=== PATIENT | female | born 1990 | race Two or more races ===

== ENCOUNTER → 2020-04-12 09:16 | Outpatient (BNVA) | payer MEDICAID, SELFPAY | PROVIDERS: PCP Student in an Organized Health Care Education/Training Program; Referring Provider Student in an Organized Health Care Education/Training Program; Visit Provider Nurse Practitioner | DX: K58.9 Irritable bowel syndrome, unspecified (principal); K21.9 Gastro-esophageal reflux disease without esophagitis; G43.909 Migraine, unspecified, not intractable, without status migrainosus; Z79.899 Other long term (current) drug therapy | CPT/HCPCS: 99214 ==

== ENCOUNTER → 2020-05-03 08:40 | Outpatient (BNVA) | payer MEDICAID, SELFPAY | PROVIDERS: PCP Student in an Organized Health Care Education/Training Program; Visit Provider Nurse Practitioner | DX: Z76.89 Persons encountering health services in other specified circumstances (principal) ==

== ENCOUNTER 2020-05-25 15:03 | Outpatient (REF) | payer MEDICAID, SELFPAY ==
[2020-05-25 17:39] LABS: Thyroid Stimulating Hormone 3.69 uIU/mL (0.32-4.0)
[2020-05-26 11:12] LABS: BV Int Neg Control Negative (Negative); BV Int Pos Control Positive (Positive)
[2020-05-27 12:17] LABS: DHEA Sulfate 317 mcg/dL (18-391)
[2020-05-27 16:13] LABS: Prolactin 14.5 ng/mL
[2020-05-28 11:09] LABS: CT PCR NOT DETECTED (Not Detect.); NG PCR NOT DETECTED (Not Detect.)
[2020-05-30 15:52] LABS: Testosterone, Free 8.6 pg/mL (0.1-6.4); Testosterone, Total 48 ng/dL (2-45)
== END 2020-05-25 15:04 | disposition home or self-care (01) ==
LOC: HO.LAB 15:03
PROVIDERS: Visit Provider Advanced Practice Midwife
DX: N92.6 Irregular menstruation, unspecified (principal); R10.2 Pelvic and perineal pain; L68.0 Hirsutism; L65.9 Nonscarring hair loss, unspecified; Z20.2 Contact with and (suspected) exposure to infections with a predominantly sexual mode of transmission
CPT/HCPCS: 81025; 82627; 83498; 84146; 84402; 84403; 84443; 87480; 87491; 87510; 87591; 87660; 99202

== ENCOUNTER 2020-06-09 11:31 | Outpatient (REF) | payer MEDICAID, SELFPAY ==
--- NOTE | 2020-06-09 11:35 | US_ITS ---
EXAMINATION: ULTRASOUND PELVIS COMPLETE. CLINICAL INFORMATION: Hirsutism. COMPARISON: None TECHNIQUE: Transabdominal and transvaginal ultrasound of the pelvis is performed. FINDINGS: The uterus is anteverted and anteflexed measured 8.0 cm in length, 3.2 cm in AP and 3.9 cm in transverse dimension. An additional thickness is 0.4 cm. The uterus is homogeneous echotexture without any focal lesions. There are multiple small nabothian cysts visualized. Right ovary measures 2.9 x 2.3 x 2.2 cm and volume 7.7 mL. A small follicular cyst seen. Left ovary measures 3.1 x 2.6 x 1.8 cm and volume 7.6 mL. Small follicular cysts are seen in the ovaries. No solid mass seen in the adnexa. There is no free fluid in the cul-de-sac. US/US pelvic complete IMPRESSION: Unremarkable uterus. Small nabothian cyst in cervix. Small ovarian follicular cysts otherwise unremarkable.
--- NOTE | 2020-06-09 11:35 | US_ITS ---
EXAMINATION: ULTRASOUND PELVIS COMPLETE. CLINICAL INFORMATION: Hirsutism. COMPARISON: None TECHNIQUE: Transabdominal and transvaginal ultrasound of the pelvis is performed. FINDINGS: The uterus is anteverted and anteflexed measured 8.0 cm in length, 3.2 cm in AP and 3.9 cm in transverse dimension. An additional thickness is 0.4 cm. The uterus is homogeneous echotexture without any focal lesions. There are multiple small nabothian cysts visualized. Right ovary measures 2.9 x 2.3 x 2.2 cm and volume 7.7 mL. A small follicular cyst seen. Left ovary measures 3.1 x 2.6 x 1.8 cm and volume 7.6 mL. Small follicular cysts are seen in the ovaries. No solid mass seen in the adnexa. There is no free fluid in the cul-de-sac. US/US transvaginal IMPRESSION: Unremarkable uterus. Small nabothian cyst in cervix. Small ovarian follicular cysts otherwise unremarkable.
== END 2020-06-09 11:32 | disposition home or self-care (01) ==
LOC: HO.US 11:31
PROVIDERS: Visit Provider Advanced Practice Midwife
DX: L68.0 Hirsutism (principal); N92.6 Irregular menstruation, unspecified
CPT/HCPCS: 76830; 76856

== ENCOUNTER → 2020-06-14 15:47 | Outpatient (BNVA) | payer MEDICAID, SELFPAY | PROVIDERS: PCP Student in an Organized Health Care Education/Training Program; Visit Provider Nurse Practitioner | DX: Z76.89 Persons encountering health services in other specified circumstances (principal) ==

== ENCOUNTER → 2020-06-23 14:53 | Outpatient (BNVA) | payer MEDICAID, SELFPAY | PROVIDERS: PCP Student in an Organized Health Care Education/Training Program; Visit Provider Advanced Practice Midwife | DX: Z71.2 Person consulting for explanation of examination or test findings (principal); R79.89 Other specified abnormal findings of blood chemistry; L65.9 Nonscarring hair loss, unspecified; E28.2 Polycystic ovarian syndrome | CPT/HCPCS: 99212 ==

== ENCOUNTER 2020-06-23 16:35 | Outpatient (REF) | payer MEDICAID, SELFPAY | END 2020-06-23 16:36 | disposition home or self-care (01) | LOC: HO.LAB 16:35 | PROVIDERS: Visit Provider Internal Medicine | DX: Z20.828 Contact with and (suspected) exposure to other viral communicable diseases (principal) | CPT/HCPCS: 36415; C9803; U0003 ==

== ENCOUNTER 2020-08-03 14:59 | Outpatient (REF) | payer MEDICAID, SELFPAY ==
[2020-08-11 05:52] LABS: HPV 16 RNA NOT DETECTED (NOT DETECTED); HPV mRNA E6/E7 rflx Detected (Not Detected)
== END 2020-08-03 15:00 | disposition home or self-care (01) ==
LOC: HO.LAB 14:59
PROVIDERS: PCP Student in an Organized Health Care Education/Training Program; Visit Provider Advanced Practice Midwife
DX: Z01.419 Encounter for gynecological examination (general) (routine) without abnormal findings (principal); N90.89 Other specified noninflammatory disorders of vulva and perineum; F43.9 Reaction to severe stress, unspecified; Z79.899 Other long term (current) drug therapy
CPT/HCPCS: 36415; 87624; 87625; 88141; 88142

== ENCOUNTER 2020-09-02 09:04 | Outpatient (REF) | payer MEDICAID, SELFPAY | END 2020-09-02 09:05 | disposition home or self-care (01) | LOC: HO.LAB 09:04 | PROVIDERS: Visit Provider Obstetrics & Gynecology | DX: R87.610 Atypical squamous cells of undetermined significance on cytologic smear of cervix (ASC-US) (principal); R87.810 Cervical high risk human papillomavirus (HPV) DNA test positive; E66.9 Obesity, unspecified | CPT/HCPCS: 57454; 81025; 88305 ==

== ENCOUNTER → 2020-09-13 08:43 | Outpatient (BNVA) | payer MEDICAID, SELFPAY | PROVIDERS: PCP Student in an Organized Health Care Education/Training Program; Visit Provider Internal Medicine Endocrinology, Diabetes & Metabolism | DX: E28.2 Polycystic ovarian syndrome (principal); E66.9 Obesity, unspecified | CPT/HCPCS: 99202 ==

== ENCOUNTER 2021-09-15 09:45 | Outpatient (REF) | payer MEDICAID, SELFPAY ==
[2021-09-15 17:54] LABS: CT PCR NOT DETECTED (Not Detect.); NG PCR NOT DETECTED (Not Detect.)
[2021-09-22 07:22] LABS: HPV 16 RNA NOT DETECTED (NOT DETECTED); HPV mRNA E6/E7 rflx Detected (Not Detected)
== END 2021-09-15 09:46 | disposition home or self-care (01) ==
LOC: HO.LAB 09:45
PROVIDERS: PCP Student in an Organized Health Care Education/Training Program; Visit Provider Advanced Practice Midwife
DX: Z01.411 Encounter for gynecological examination (general) (routine) with abnormal findings (principal); Z11.51 Encounter for screening for human papillomavirus (HPV); N92.6 Irregular menstruation, unspecified; R87.619 Unspecified abnormal cytological findings in specimens from cervix uteri; N39.3 Stress incontinence (female) (male); Z20.2 Contact with and (suspected) exposure to infections with a predominantly sexual mode of transmission
CPT/HCPCS: 87491; 87591; 87624; 87625; 88142

== ENCOUNTER 2021-10-25 15:19 | Outpatient (REF) | payer MEDICAID, SELFPAY | END 2021-10-25 15:20 | disposition home or self-care (01) | LOC: HO.LAB 15:19 | PROVIDERS: PCP Student in an Organized Health Care Education/Training Program; Visit Provider Obstetrics & Gynecology | DX: R87.610 Atypical squamous cells of undetermined significance on cytologic smear of cervix (ASC-US) (principal); R87.810 Cervical high risk human papillomavirus (HPV) DNA test positive | CPT/HCPCS: 57454; 81025; 88305 ==

== ENCOUNTER → 2021-11-08 12:11 | Outpatient (BNVA) | payer MEDICAID, SELFPAY | PROVIDERS: Visit Provider Obstetrics & Gynecology | DX: R87.610 Atypical squamous cells of undetermined significance on cytologic smear of cervix (ASC-US) (principal); R87.810 Cervical high risk human papillomavirus (HPV) DNA test positive; N91.2 Amenorrhea, unspecified | CPT/HCPCS: 99212 ==

== ENCOUNTER 2022-01-30 13:31 | Outpatient (REF) | payer MEDICAID, SELFPAY ==
--- NOTE | ~2022-01-30 | US_ITS ---
EXAMINATION: US PELVIC AND TRANSVAGINAL CLINICAL INFORMATION: Amenorrhea. COMPARISON: Ultrasound pelvis 06/09/2020 TECHNIQUE: Ultrasound of the pelvis was performed using both transabdominal and transvaginal transducers along with Doppler. Transvaginal imaging was performed due to inadequate visualization transabdominally. FINDINGS: UTERUS: The uterus is anteverted and measures 7.4 cm in length, 3.3 mL in AP and 4.5 cm in transverse dimensions. The double wall endometrial thickness is 0.6 cm. The uterus is smooth in contour and has normal myometrial echogenicity. No visible fibroid. There are small nabothian cysts seen in the cervix ADNEXA: Both ovaries are visualized. There is normal color flow to the adnexa. There is no ovarian torsion. There is no pelvic ascites or fluid collection. Right ovary measures 3.1 x 2.7 x 2.2 cm and volume 9.9 mL. There are small follicular cysts seen. Left ovary measures 2.7 x 1.8 x 2.0 cm and volume 5.1 mL. Small follicular cysts are seen. US/US pelvic and transvaginal IMPRESSION: Bilateral small ovarian follicular cysts. Similar findings were seen on previous exam 06/09/2020 The uterus is unremarkable. Small nabothian cysts in cervix. These were visualized on previous exam as well
== END 2022-01-30 13:32 | disposition home or self-care (01) ==
LOC: HO.US 13:31
PROVIDERS: Visit Provider Obstetrics & Gynecology
DX: N92.1 Excessive and frequent menstruation with irregular cycle (principal)
CPT/HCPCS: 76830; 76856

== ENCOUNTER 2022-11-28 14:02 | Outpatient (REF) | payer MEDICAID, SELFPAY | END 2022-11-28 14:03 | disposition home or self-care (01) | LOC: HO.LNP 14:02 | PROVIDERS: PCP Student in an Organized Health Care Education/Training Program; Visit Provider Nurse Practitioner Family | DX: R31.0 Gross hematuria (principal); N20.0 Calculus of kidney; R39.15 Urgency of urination | CPT/HCPCS: 88112; 99202 ==

== ENCOUNTER 2022-11-28 16:48 | Outpatient (REF) | payer MEDICAID, SELFPAY ==
[2022-11-29 08:19] LABS: Urine Cytology See Pathology rpt
== END 2022-11-28 16:49 | disposition home or self-care (01) ==
LOC: HO.10HDLNP 16:48
PROVIDERS: Visit Provider Nurse Practitioner Family
DX: R31.0 Gross hematuria (principal); R39.15 Urgency of urination
CPT/HCPCS: 88112

== ENCOUNTER 2023-01-02 10:22 | Outpatient (REF) | payer MEDICAID, SELFPAY ==
--- NOTE | ~2023-01-02 | CT_ITS ---
EXAMINATION: CT ABDOMEN AND PELVIS WITHOUT AND WITH CONTRAST CLINICAL INFORMATION: Gross hematuria. COMPARISON: None available. TECHNIQUE: Noncontrast CT of the abdomen and pelvis is performed followed by split bolus contrast-enhanced images using 85 mL Omnipaque 350 contrast.?Postcontrast imaging is performed during the combined nephrogram and excretion phase. Sagittal and coronal reformatted images were obtained on the technologist's workstation for both the precontrast and postcontrast phases. This CT examination was performed using dose optimization techniques as appropriate, variously including the following: *Automated exposure control *Adjustment of mA and/or kV according to patient size (this includes techniques or standardized protocols for targeted exams where dose is matched to indication/reason for exam; i.e. extremities or head) *Use of iterative reconstruction technique DLP: 1125 mGy-cm FINDINGS: LUNG BASES: The visualized lung bases are unremarkable. LIVER, GALLBLADDER, AND BILIARY TREE: The liver is normal in size, shape, and diffusely attenuated. There are punctate calcifications in the left hepatic lobe of indeterminate etiology. Otherwise rest of the liver is unremarkable. No intrahepatic ductal dilatation seen. The gallbladder is unremarkable with no evidence of radiopaque gallstones, gallbladder wall thickening, or obvious pericholecystic inflammatory changes. PANCREAS: Unremarkable. SPLEEN: Unremarkable. ADRENAL GLANDS: Unremarkable. KIDNEYS AND URETERS: The kidneys are normal in size, shape, and attenuation. There is a 2 mm calcification/calculi in the upper midpole right kidney without caliectasis. There is a 9 mm hypodensity midpole right kidney measuring high attenuation not a simple cyst. A similar hypodense 6 mm lesion is seen in the upper pole right kidney measuring 46 Hounsfield units. BLADDER: The bladder is partially opacified from excreted urinary contrast. No radiopaque calculi or bladder wall thickness seen. GASTROINTESTINAL TRACT: There is scattered stool and gas seen in the colon without distention. The small bowel loops are normal caliber. Appendix is not visualized. No free air or free fluid seen. The stomach is nondistended. ABDOMINAL WALL: Normal. LYMPH NODES: Unremarkable. PELVIC VISCERA: The uterus is anteverted and appears unremarkable. No free air or free fluid seen. There is no evidence of hernia. OSSEOUS STRUCTURES: No aggressive lytic or sclerotic process seen. CT/CT urogram IMPRESSION: 1. Nonobstructive 2 mm calcification/calculi in the upper midpole right kidney. No caliectasis or hydronephrosis seen. 2. There are 2 hypodense high-attenuation lesions in the right kidney measuring 40 Hounsfield units plus not simple cyst. Correlate with renal ultrasound. 3. Mild constipation. 4. Punctate calcifications left hepatic lobe of indeterminate etiology.
[2023-01-02] MEDS: iohexoL 350 MG/ML 100 ML INFUS..BTL IV (11:15)
== END 2023-01-02 10:23 | disposition home or self-care (01) ==
LOC: HO.CT 10:22
PROVIDERS: PCP Student in an Organized Health Care Education/Training Program; Visit Provider Nurse Practitioner Family
DX: R31.0 Gross hematuria (principal)
CPT/HCPCS: 74178; Q9967

== ENCOUNTER 2023-03-29 11:08 | Outpatient (AMB) | payer MEDICAID, SELFPAY ==
--- NOTE | 2023-01-10 07:03 | A.OFFVIS_ITS ---
Intake Intake Visit Reasons: cysto/CT Allergies No Known Allergies Allergy (Verified 11/28/22 22:03) HPI HPI Comments History of Present Illness Details Myra is a 32-year-old female who presents today to the office 01/10/2023-- Evaluation today-- Plan: [facility] Medical History Obesity Obesity (BMI 30-39.9) Surgical History Hx of section Family History Father No problems noted. Mother Asthma Arthritis Fibromyalgia Brother Cerebral palsy Social History Household Members: Children Housing: Apartment Alcohol intake: current Alcohol intake frequency: does not drink Substance Use Type: Marijuana Gender identity: Female Female Reproductive History Menstrual Age of Menarche: 11 Assessment & Plan Assessment & Plan Patient Instructions: The patient had an opportunity to ask questions regarding treatment plan. All questions were answered. Imaging, Laboratory studies and physical exam results were discussed and reviewed in detail. No major barriers to understanding were identified. The patient expressed understanding and agreement with the above treatment plan.? ? ? The patient is aware they should contact our office by phone for worsening of their current condition or the appearance of new symptoms. Compliance is encouraged with any medications and followup testing that is ordered.? ? ? It is a privilege to be allowed the opportunity to participate in the urologic care of your patient. If you have any questions or concerns regarding treatment for the above conditions please do not hesitate to contact me. The office telephone contact is [phone].? ? ? This note is constructed in part using voice recognition software. While every effort has been made to ensure accuracy roving department end finder errors may have been included.? ? ? Yours sincerely,? ? ? Sean Sanchez MD? ? Coding Diagnoses
--- NOTE | 2023-03-29 11:09 | MHC.OFFVIS ---
Intake Intake Visit Reasons: follow up/CT (pt refuse cysto) Intake Note: Patient presents today for a follow-up on CT Scan result completed on 01/02/2023: Meds- None Allergies to Antibiotic- No Known Allergies Blood Thinner- None Electrical Engineering Professor Required: No Accompanied by: Self / Same As Patient Allergies No Known Allergies Allergy (Verified 03/29/23 11:10) HPI HPI Comments History of Present Illness Details Myra is a 32-year-old female who is being evaluated for hematuria. She states that a few months ago about February she had blood in the urine on a few occasions that day without pain. She states that she had some mild burning which has resolved. She stated that she was not treated with antibiotics. She denies nicotine use. She was initially evaluated by nurse practitioner Amber Khan, I have reviewed results with the patient. CT urogram was done which noted a 2 mm stone in the right kidney as well as 2 subcentimeter cystic lesions with recommendations for follow-up. Urine cytology in her chart was negative for malignant cells. The patient had a renal ultrasound done at [facility] in August which I have reviewed, there no parenchymal lesions noted. Although she has kidney stones and this may be be the reason for the gross hematuria she had no pain associated with the incidence I were multiple so I have discussed following up with cystoscopy. The patient has anxiety which she is on medication for and refuses to have the cystoscopy in the office. Plan: Consent obtained for cystoscopy possible bladder biopsy as an outpatient. Renal ultrasound in 6 months [facility] Medical History Obesity (BMI 30-39.9) Obesity Surgical History Hx of section Family History Father No problems noted. Mother Asthma Arthritis Fibromyalgia Brother Cerebral palsy Social History Household Members: Children Housing: Apartment Alcohol intake: current Alcohol intake frequency: does not drink Substance Use Type: Marijuana Gender identity: Female Female Reproductive History Menstrual Age of Menarche: 11 Review of Systems Const All systems reviewed & are unremarkable except as noted in HPI and below Reports no additional complaints Eyes Reports no additional complaints ENT Reports no additional complaints Card Denies dyspnea Resp Denies cough and Denies dyspnea GI Reports no additional complaints Reports no additional complaints Musc Reports no additional complaints Skin/Breast Denies rash and Denies unusual bruising Neuro Reports no additional complaints Psych Reports no additional complaints Endo Reports no additional complaints Anthony/Lymph Reports no additional complaints Aller/Immun Reports no additional complaints Results AMB Urinalysis, Automated UA Leukoctes 0 Sol/uL Last Edit by Cyril Lockhart Kervin on 03/29/23 11:18 UA Nitrite Negative Last Edit by Cyril Lockhart [facility] on 03/29/23 11:18 UA Urobilinogen 0 mg/dL Last Edit by Cyril Lockhart [facility] on 03/29/23 11:18 UA Protein 0.2 mg/dL Last Edit by Cyril Lockhart [facility] on 03/29/23 11:18 UA pH 5.5 Last Edit by Cyril Lockhart [facility] on 03/29/23 11:18 UA Blood 25 Travis/uL Last Edit by Cyril Lockhart [facility] on 03/29/23 11:18 UA Specific [place] 1.020 Last Edit by Cyril Lockhart [facility] on 03/29/23 11:18 UA Ketone Negative Last Edit by Cyril Lockhart [facility] on 03/29/23 11:18 UA Bilirubin 0 mg/dL Last Edit by Cyril Lockhart [facility] on 03/29/23 11:18 UA Glucose 0 mg/dL Last Edit by Cyril Lockhart [facility] on 03/29/23 11:18 Results Reviewed Results Reviewed: Laboratory Last Values Urine pH (Auto) 5.5 03/29/23 11:10 Specific [place] (Auto) 1.020 03/29/23 11:10 Urine Protein (Auto) 0.2 mg/dL 03/29/23 11:10 Glucose (UA)(Auto) 0 mg/dL 03/29/23 11:10 Urine Ketones (Auto) Negative 03/29/23 11:10 Urine Blood (Auto) 25 Travis/uL 03/29/23 11:10 Urine Nitrite (Auto) Negative 03/29/23 11:10 Urine Bilirubin (Auto) 0 mg/dL 03/29/23 11:10 Urine Urobilinogen (Auto) 0 mg/dL 03/29/23 11:10 Leukocyte Esterase (Auto) 0 Sol/uL 03/29/23 11:10 Date of Service: 01/02/23 EXAMINATION: CT ABDOMEN AND PELVIS WITHOUT AND WITH CONTRAST CLINICAL INFORMATION: Gross hematuria. COMPARISON: None available. TECHNIQUE: Noncontrast CT of the abdomen and pelvis is performed followed by split bolus contrast-enhanced images using 85 mL Omnipaque 350 contrast.?Postcontrast imaging is performed during the combined nephrogram and excretion phase. Sagittal and coronal reformatted images were obtained on the technologist's workstation for both the precontrast and postcontrast phases. This CT examination was performed using dose optimization techniques as appropriate, variously including the following: *Automated exposure control *Adjustment of mA and/or kV according to patient size (this includes techniques or standardized protocols for targeted exams where dose is matched to indication/reason for exam; i.e. extremities or head) *Use of iterative reconstruction technique DLP: 1125 mGy-cm FINDINGS: LUNG BASES: The visualized lung bases are unremarkable. LIVER, GALLBLADDER, AND BILIARY TREE: The liver is normal in size, shape, and diffusely attenuated. There are punctate calcifications in the left hepatic lobe of indeterminate etiology. Otherwise rest of the liver is unremarkable. No intrahepatic ductal dilatation seen. The gallbladder is unremarkable with no evidence of radiopaque gallstones, gallbladder wall thickening, or obvious pericholecystic inflammatory changes. PANCREAS: Unremarkable. SPLEEN: Unremarkable. ADRENAL GLANDS: Unremarkable. KIDNEYS AND URETERS: The kidneys are normal in size, shape, and attenuation. There is a 2 mm calcification/calculi in the upper midpole right kidney without caliectasis. There is a 9 mm hypodensity midpole right kidney measuring high attenuation not a simple cyst. A similar hypodense 6 mm lesion is seen in the upper pole right kidney measuring 46 Hounsfield units. BLADDER: The bladder is partially opacified from excreted urinary contrast. No radiopaque calculi or bladder wall thickness seen. GASTROINTESTINAL TRACT: There is scattered stool and gas seen in the colon without distention. The small bowel loops are normal caliber. Appendix is not visualized. No free air or free fluid seen. The stomach is nondistended. ABDOMINAL WALL: Normal. LYMPH NODES: Unremarkable. PELVIC VISCERA: The uterus is anteverted and appears unremarkable. No free air or free fluid seen. There is no evidence of hernia. OSSEOUS STRUCTURES: No aggressive lytic or sclerotic process seen. IMPRESSION: 1. Nonobstructive 2 mm calcification/calculi in the upper midpole right kidney. No caliectasis or hydronephrosis seen. 2. There are 2 hypodense high-attenuation lesions in the right kidney measuring 40 Hounsfield units plus not simple cyst. Correlate with renal ultrasound. 3. Mild constipation. 4. Punctate calcifications left hepatic lobe of indeterminate etiology. Assessment & Plan Assessment & Plan (1) Gross hematuria: Code(s): R31.0 - Gross hematuria (2) Nephrolithiasis: Code(s): N20.0 - Calculus of kidney (3) Abnormal finding on CT scan: Comment: 2 Subcentimeter hypodense high-attenuation lesions in the right kidney Code(s): R93.89 - Abnormal findings on diagnostic imaging of other specified body structures Plan Plan: Consent obtained for cystoscopy possible bladder biopsy as an outpatient. Renal ultrasound in 6 months Orders: Orders AMB Urinalysis Automated Today Z13.9 - Encounter for screening, unspecified Patient Instructions: The patient had an opportunity to ask questions regarding treatment plan. All questions were answered. Imaging, Laboratory studies and physical exam results were discussed and reviewed in detail. No major barriers to understanding were identified. The patient expressed understanding and agreement with the above treatment plan. The patient is aware they should contact our office by phone for worsening of their current condition or the appearance of new symptoms. Compliance is encouraged with any medications and followup testing that is ordered. It is a privilege to be allowed the opportunity to participate in the urologic care of your patient. If you have any questions or concerns regarding treatment for the above conditions please do not hesitate to contact me. The office telephone contact is [phone]. This note is constructed in part using voice recognition software. While every effort has been made to ensure accuracy new client banking services clerk errors may have been included. Yours sincerely, Sean Sanchez MD Coding Level of Care Code Est Pt Level 4 (43526) Diagnoses Gross hematuria R31.0 Nephrolithiasis N20.[address] scan R93.89
== END 2023-03-29 11:50 | disposition home or self-care (01) ==
PROVIDERS: PCP Student in an Organized Health Care Education/Training Program; Visit Provider Urology
DX: R31.0 Gross hematuria (principal); N20.0 Calculus of kidney; R93.89 Abnormal findings on diagnostic imaging of other specified body structures; Z13.9 Encounter for screening, unspecified
CPT/HCPCS: 99214

== ENCOUNTER → 2023-03-29 11:08 | Outpatient (BNVA) | payer MEDICAID, SELFPAY | PROVIDERS: PCP Student in an Organized Health Care Education/Training Program; Visit Provider Urology | DX: R31.0 Gross hematuria (principal); R93.89 Abnormal findings on diagnostic imaging of other specified body structures; N20.0 Calculus of kidney | CPT/HCPCS: 81003; 99212 ==

== ENCOUNTER 2023-04-23 06:20 | Day surgery (SDC) | payer MEDICAID, SELFPAY ==
[2023-04-19 09:31] VITALS: BMI 33.8
--- NOTE | 2023-04-22 09:07 | HO.ANESPROP2 ---
HPI - Anesthesia Eval Consult details Narrative: 32yo F for Cystoscopy,with Poss Bladder Biopsy PMFSH Active Problems Active Problems: All Active Problems (Updated 04/19/23 @ 09:27 by Tiffany Roy RN) Abnormal finding on CT scan (Acute) Nephrolithiasis (Acute) Gross hematuria (Acute) Amenorrhea (Acute) ASCUS with positive high risk HPV cervical (Acute) PCOS (polycystic ovarian syndrome) (Acute) Loss of hair (Acute) Elevated testosterone level in female (Acute) Encounter to discuss test results (Acute) Irregular menses (Acute) Hirsutism (Acute) Pelvic pain in female (Acute) IBS (irritable bowel syndrome) (Acute) Migraines (Acute) Lower abdominal pain (Acute) GERD (gastroesophageal reflux disease) (Acute) Nausea and vomiting (Acute) Obesity (BMI 30-39.9) (Acute) Obesity (Acute) Past Medical History Medical History (Updated 04/19/23 @ 09:27 by Tiffany Roy RN) Migraine GERD (gastroesophageal reflux disease) Amenorrhea PCOS (polycystic ovarian syndrome) Nephrolithiasis Obesity (BMI 30-39.9) Obesity Family History Family History Father No problems noted. Mother Asthma Arthritis Fibromyalgia Brother Cerebral palsy Surgical History Surgical History Hx of section Social History Social History Household Members: Children Housing: Apartment Alcohol intake: current Alcohol intake frequency: does not drink Substance Use Type: Marijuana Gender identity: Female Meds Allergies Allergy/AdvReac Type Severity Reaction Status Date / Time No Known Allergies Allergy Verified 03/29/23 11:10 Home Medications Medication Instructions Recorded Confirmed Last Taken Type aripiprazole 10 mg tablet 10 mg PO QAM 03/29/23 04/19/23 Unknown History buspirone 5 mg tablet 5 mg PO BID 03/29/23 04/19/23 Unknown History dextroamphetamine-amphetamine ER 2 cap PO QAM 03/29/23 04/19/23 Unknown History 20 mg 24hr capsule,extend release (Adderall XR) hydroxyzine HCl 25 mg tablet 25 mg PO BID PRN anxiety 03/29/23 04/19/23 Unknown History Exam Exam Date and Time: April 22, 2023 0907 Height,Weight and Vital Signs: Height 5 ft 3 in Weight 86.636 kg Assessment and Plan Assessment Anesthesia Assessment: Chart Reviewed
[2023-04-23 06:39] VITALS: BMI 32.6
[2023-04-23 06:39] LABS: UPreg QC Valid YES; Urine Pregnancy NEGATIVE (NEGATIVE)
[2023-04-23 06:40] VITALS: BP 118/63; PULSE 95; RESP 16; TEMP 36.5; O2SAT 97
[2023-04-23] MEDS: Lactated Ringers 1,000 ML 100 ML IVCONT (07:13)
--- NOTE | 2023-04-23 07:41 | MHC.SHP ---
Pre-Procedural Eval Section A Date of Service: 04/23/23 The patient is an INPATIENT: No The History & Physical has been completed within 30 days and I have reviewed it.: Yes Section B Chief Complaint: Gross hematuria Allergies: Allergies Allergy/AdvReac Type Severity Reaction Status Date / Time No Known Allergies Allergy Verified 04/23/23 06:48 Plan Diagnosis/Plan: Unchanged I have reviewed the history and physical and performed a pertinent physical examination on my patient. No changes have occurred unless specified. Cystoscopy possible bladder biopsy. Discussed risks to include but not limited to, blood in the urine, burning with urination, urgency. Time Spent With Patient Time: Total time managing care of this patient today ____ minutes.
--- NOTE | 2023-04-23 08:02 | P.CONAN_ITS ---
[facility] Active Problems Active Problems: All Active Problems (Updated 04/19/23 @ 09:27 by Tiffany Roy RN) Abnormal finding on CT scan (Acute) Nephrolithiasis (Acute) Gross hematuria (Acute) Amenorrhea (Acute) ASCUS with positive high risk HPV cervical (Acute) PCOS (polycystic ovarian syndrome) (Acute) Loss of hair (Acute) Elevated testosterone level in female (Acute) Encounter to discuss test results (Acute) Irregular menses (Acute) Hirsutism (Acute) Pelvic pain in female (Acute) IBS (irritable bowel syndrome) (Acute) Migraines (Acute) Lower abdominal pain (Acute) GERD (gastroesophageal reflux disease) (Acute) Nausea and vomiting (Acute) Obesity (BMI 30-39.9) (Acute) Obesity (Acute) Past Medical History Medical History Migraine GERD (gastroesophageal reflux disease) Amenorrhea PCOS (polycystic ovarian syndrome) Nephrolithiasis Obesity (BMI 30-39.9) Obesity Functional capacity: independent ambulation Patient : No Family History Family History Father No problems noted. Mother Asthma Arthritis Fibromyalgia Brother Cerebral palsy Family history of problems with anesthesia: No Surgical History Surgical History Hx of section History of Problems with Anesthesia: No Social History Social History Household Members: Children Housing: Apartment Alcohol intake: current Alcohol intake frequency: does not drink Patient Tobacco Use Status: Former Tobacco user Use of substances other than those prescribed or required for medical reasons: Yes Substance Use Type: Marijuana Substance Use Frequency: Occasionally Are you DNR?: No Advance Directives: No Advance Directives Information Provided: Yes Gender identity: Female Meds Allergies Allergy/AdvReac Type Severity Reaction Status Date / Time No Known Allergies Allergy Verified 04/23/23 06:48 Active Medications: Current Medications Lactated Ringer's (Lr) 1,000 mls @ 100 mls/hr IVCONT .Q10H ARTHUR Last Admin: 04/23/23 07:13 Dose: 100 mls/hr Home Medications Medication Instructions Recorded Confirmed Last Taken Type aripiprazole 10 mg tablet 10 mg PO QAM 03/29/23 04/23/23 Unknown History buspirone 5 mg tablet 5 mg PO BID 03/29/23 04/23/23 Unknown History dextroamphetamine-amphetamine ER 2 cap PO QAM 03/29/23 04/23/23 Unknown History 20 mg 24hr capsule,extend release (Adderall XR) hydroxyzine HCl 25 mg tablet 25 mg PO BID PRN anxiety 03/29/23 04/23/23 Unknown History Exam Exam Date and Time: April 23, 2023 0802 Height,Weight and Vital Signs: Height 5 ft 3 in Weight 83.461 kg Last Vital Signs Temp 97.7 F 04/23/23 06:40 Pulse 95 04/23/23 06:40 Resp 16 04/23/23 06:40 BP 118/63 04/23/23 06:40 Pulse Ox 97 04/23/23 06:40 O2 Del Method Room Air 04/23/23 06:40 Pertinent Lab Results Pertinent Lab Results: Laboratory Tests 04/23/23 06:30 Urine Test NEGATIVE Airway Mallampati Class: III TM Dist: >3cm Neck ROM: Full Heart: RRR Lungs: CTA Assessment and Plan Assessment Anesthesia Assessment: Anesthesia Plan Discussed Final Anesthetic Review Family History of Problems with Anesthesia: No History of Problems with Anesthesia: No ASA Class: II Final Preanesthetic Review: Meds/Allgs Chart Reviewed, Consent Obtained/Reviewed and Anes Risks/Benef Reviewed Patient Risk: Low Procedure Risk: Low Anesthetic Plan Anesthetic Plan: GA Disposition: Standard PACU
[2023-04-23 08:26] VITALS: BP 114/64; PULSE 69; RESP 16; TEMP 36.4; O2SAT 94
[2023-04-23 08:31] VITALS: BP 99/67; PULSE 74; RESP 16; O2SAT 94
--- NOTE | 2023-04-23 08:31 | W.PM.OPN ---
Operative Note Operative Note Date of Service: 04/23/23 Narrative: PREOP DIAGNOSIS: Gross hematuria POSTOP DIAGNOSIS: Gross hematuria PROCEDURE: CYSTOSCOPY BLADDER BIOPSY SURGEON: Sean Sanchez MD ANESTHESIA: GENERAL FINDING: BLADDER MUCOSA MILD INFLAMMATORY CHANGES, BLADDER LESION POSTERIOR WALL LESS THAN 1 CM. Details of procedure: The patient was brought into the operating room placed on the OR table in supine position. 2 g of Ancef IV. General anesthesia was administered. The patient was repositioned into lithotomy position, prepped and draped in the usual sterile fashion. Time-out was done per protocol. 2% lidocaine jelly was passed transurethrally. A 22 fr cystoscope was placed transurethrally into the bladder. The right and left ureteral orifices were visualized in the normal position. The entire bladder was visualized. Mild inflammatory changes noted. A few multifocal irregular lesions suggestive of bullous changes noted, a biopsy was taken of 1 of these findings at the posterior wall. A 2nd random biopsy was done at the posterior wall of the bladder. The Bugbee electrode was used to obtain adequate hemostasis. The cystoscope was removed. 2% lidocaine urojet was passed transurethrally into the bladder. The patient was brought out of anesthesia and taken to recovery in stable condition. Complications: None Drains: None
[2023-04-23 08:36] VITALS: BP 115/72; PULSE 73; RESP 16; O2SAT 97
[2023-04-23 08:41] VITALS: BP 122/76; RESP 16; O2SAT 97
[2023-04-23] MEDS: Phenazopyridine HCL 200 MG TABLET PO (08:52)
[2023-04-23 08:56] VITALS: BP 122/73; PULSE 77; RESP 16; TEMP 36.4; O2SAT 98
--- NOTE | 2023-04-23 09:36 | HO.POSTANES ---
Post Anesthesia Evaluation Post Anesthesia Evaluation Date of Service: 04/23/23 Vital Signs: Vital Signs Temp Pulse Resp BP Pulse Ox O2 Del Method 04/23/23 08:56 97.6 F 77 16 122/73 98 Room Air 04/23/23 08:41 16 122/76 97 Room Air 04/23/23 08:36 73 16 115/72 97 Room Air 04/23/23 08:31 74 16 99/67 94 Room Air 04/23/23 08:26 97.6 F 69 16 114/64 94 Room Air 04/23/23 06:40 97.7 F 95 16 118/63 97 Room Air Anesthesia: General LMA Mental Status: Awake Pain Control: Satisfactory Nausea/Vomiting: None Hydration: Adequate Anesthesia-Related Issues: No Anes. Related Issues
== END 2023-04-23 09:17 | disposition home or self-care (01) ==
PROVIDERS: Nurse Practitioner; PCP Student in an Organized Health Care Education/Training Program; Visit Provider Urology
PROC: (CPT 52204; principal; 2023-04-23 07:30)
DX: R31.0 Gross hematuria (principal); N32.9 Bladder disorder, unspecified; R93.89 Abnormal findings on diagnostic imaging of other specified body structures; N20.0 Calculus of kidney; E66.9 Obesity, unspecified; Z79.899 Other long term (current) drug therapy; F12.90 Cannabis use, unspecified, uncomplicated; Z87.891 Personal history of nicotine dependence
CPT/HCPCS: 52204; 81025; 88305; J0690; J1100; J2250; J2405; J3010

== ENCOUNTER → 2023-04-23 06:20 | Outpatient (BNV) | payer MEDICAID, SELFPAY | PROVIDERS: PCP Student in an Organized Health Care Education/Training Program; Visit Provider Urology | DX: R31.0 Gross hematuria (principal) | CPT/HCPCS: 52204 ==

== ENCOUNTER 2023-05-02 12:06 | Outpatient (REF) | payer MEDICAID, SELFPAY | END 2023-05-02 12:07 | disposition home or self-care (01) | LOC: HO.CHCLNP 12:06 | PROVIDERS: Visit Provider Internal Medicine | DX: N30.90 Cystitis, unspecified without hematuria (principal) | CPT/HCPCS: 87086; 87088; 87186 ==

== ENCOUNTER 2023-05-17 13:05 | Outpatient (REF) | payer MEDICAID, SELFPAY ==
[2023-05-18 13:58] LABS: C. trachomatis RNA TMA NOT DETECTED (NOT DETECTED); N. gonorrhoeae RNA TMA NOT DETECTED (NOT DETECTED)
== END 2023-05-17 13:06 | disposition home or self-care (01) ==
LOC: HO.CHCLNP 13:05
PROVIDERS: Visit Provider Pediatrics
DX: N30.90 Cystitis, unspecified without hematuria (principal)
CPT/HCPCS: 36415; 81513; 87491; 87591

== ENCOUNTER 2023-06-28 11:53 | Outpatient (REF) | payer MEDICAID, SELFPAY ==
[2023-06-28 15:04] LABS: Appearance Urine Cloudy; Color Urine Yellow; Glucose Urine UA Negative (Negative); Leukocyte Esterase Urine Moderate (2+) (Negative); Nitrite Urine Positive (Negative); PH 5.5 (5.0-9.0); UMIC TRIGGER UACC YES; Urine Blood Small (1+) (Negative); Urine Ketones Negative (Negative); Urine Protein Negative (Neg-Trace)
[2023-06-28 15:33] LABS: Bacteria Urine 4+ (None Seen); Hyaline Casts Urine 0-2 /LPF (0-2); UACC Culture Trigger YES; WBC Urine >50 /HPF (0-5)
== END 2023-06-28 11:54 | disposition home or self-care (01) ==
LOC: HO.CHCLNP 11:53
PROVIDERS: Visit Provider Internal Medicine
DX: N30.01 Acute cystitis with hematuria (principal)
CPT/HCPCS: 81001; 81003; 87086; 87088; 87186

== ENCOUNTER 2023-07-11 18:05 | Outpatient (REF) | payer MEDICAID, SELFPAY ==
[2023-07-12 07:42] LABS: CT PCR NOT DETECTED (Not Detect.); NG PCR NOT DETECTED (Not Detect.)
[2023-07-12 09:27] LABS: BV Int Neg Control Negative (Negative); BV Int Pos Control Positive (Positive)
== END 2023-07-11 18:06 | disposition home or self-care (01) ==
LOC: HO.HHCLNP 18:05
PROVIDERS: Visit Provider Emergency Medicine
DX: R30.0 Dysuria (principal)
CPT/HCPCS: 0353U; 87086; 87088; 87186; 87480; 87510; 87660

== ENCOUNTER 2023-09-23 11:10 | Outpatient (REF) | payer MEDICAID, SELFPAY ==
[2023-09-23 15:47] LABS: Influenza A PCR NEGATIVE (Negative); Influenza B PCR NEGATIVE (Negative); Resp Syncy Virus RNA Qual PCR NEGATIVE (Negative); SARS COV2 PCR INHOUSE NEGATIVE (Negative)
== END 2023-09-23 11:11 | disposition home or self-care (01) ==
LOC: HO.CHCLNP 11:10
PROVIDERS: Visit Provider Family Medicine
DX: J06.9 Acute upper respiratory infection, unspecified (principal)
CPT/HCPCS: 0241U

== ENCOUNTER 2023-12-04 10:23 | Outpatient (AMB) | payer MEDICAID, SELFPAY ==
--- NOTE | 2023-12-04 10:24 | MHC.OFFVIS ---
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 Doing well with no concerns. Trying to conceive, she has a 11-year-old. She tries to eat healthy and stays active with exercise-walks and lifts at work, attempting to lose. Cycles are irregular q 2months, hx. PCOS. Currently is sexually active. She denies vaginal itching and irritation, concerned about white discharge. STI screening offered; she accepts cultures, not bloodwork. Denies family history of breast, ovarian or colon cancer. Last pap smear 2021 colposcopy, negative. History of ascus with HPV positive. [facility] Medical History Migraine GERD (gastroesophageal reflux disease) Amenorrhea PCOS (polycystic ovarian syndrome) Nephrolithiasis Obesity (BMI 30-39.9) Obesity Surgical History Hx of section Family History Father No problems noted. Mother Asthma Arthritis Fibromyalgia Brother Cerebral palsy Social History Household Members: Children Housing: Apartment Alcohol intake: current Alcohol intake frequency: does not drink Comment: N/A Patient Tobacco Use Status: Former Tobacco user Substance Use Type: Marijuana Gender identity: Female Female Reproductive History Menstrual Age of Menarche: 11 Date of last menstrual period: 11/08/23 Review of Systems Const All systems reviewed & are unremarkable except as noted in HPI and below Reports as per HPI Eyes Reports no additional complaints ENT Reports no additional complaints Card Reports no additional complaints Resp Reports no additional complaints GI Reports as per HPI and Reports no additional complaints Reports as per HPI Musc Reports no additional complaints Skin/Breast Reports as per HPI Neuro Reports no additional complaints Psych Reports no additional complaints Endo Reports no additional complaints Anthony/Lymph Reports no additional complaints Aller/Immun Reports no additional complaints Physical Exam Vital Signs: Last Vital Signs BP 106/64 12/04/23 10:27 BMI result Body Mass Index 36.2 Const General: cooperative, healthy appearing, no acute distress, well developed and alert Orientation/consciousness: patient oriented x3 HEENT Head: Yes normal to inspection Eyes General: appearance normal, both eyes and all related structures Neck Neck: Yes normal visual inspection Thyroid: Thyroid normal Chest Chest palpation & inspection: normal inspection of the chest and other (no puckering, dimpling, peau de orange, retraction, discharge, masses) Breast/axilla inspection: normal inspection of the breasts Breast/axilla palpation: normal palpation of the breasts Resp Effort & Inspection: normal respiratory effort GI Inspection: Yes normal to inspection Palpation (GI): Soft to palpation Rectal Exam - Female: deferred General: Yes bladder normal to palpation External Female Exam: normal external appearance and normal appearance of the urethra Speculum Exam - Vagina: normal appearance of the vagina, normal palpation and normal vaginal discharge Speculum Exam - Cervix: normal appearance of the cervix and normal palpation Bimanual exam- vagina & uterus: normal bimanual exam, normal palpation, uterine size normal, bladder normal to palpation, normal palpation and non-tender Bimanual Exam- Adnexa, other: no masses Skin General skin exam: no rashes or lesions noted Rashes: no rashes Neuro General: patient oriented x3 Cognition (Neuro): normal cognition Extrem General: Yes normal to inspection Psych Attitude: cooperative Thought process: Normal thought process present Assessment & Plan Assessment & Plan (1) Encounter for well woman exam with routine gynecological exam: Code(s): Z01.419 - Encounter for gynecological examination (general) (routine) without abnormal findings Category: Medical Plan Discussed: Current recommendations for pap smears per ASCCP guidelines. Pap obtained today await for results for plan of care. GC chlamydia and BV panel also pending. Breast awareness and periodic breast exams. Maintain a healthy lifestyle including a well balanced diet and routine exercise. Continue with weight loss and check in with primary care about weight loss goals and management plans. Start vitamins for the benefit folic acid. Check with insurance plan to see if coverage for infertility is available, if so who is on her plan and can message the portal and request a referral if needed. Advised if cycles are spacing out longer than 2 months to call for a follow up to have some Aygestin sent in if needed. Patient verbalizes understanding and agrees to the plan of care. She was given opportunity to ask questions and all questions were answered to the best of my ability. RTO in one year for annual manager applied examination. This note is constructed using voice recognition software. While every effort has been made to ensure accuracy, big data engineer errors may have been included. Orders: Orders AMB HCG Urine Test Today Z32.02 - Encounter for test, result negative Medications: New PNV,calcium 18-[id number]-[id number] acid 27 mg iron- 1 mg ( Vitamins Plus Low Iron) 1 tab PO DAILY 90 tabs 4RF Coding Level of Care Code Est Pt Prev Care 18-39y(30617) Diagnoses Encounter for well woman exam with routine gynecological exam Z01.419
--- NOTE | 2023-12-04 10:24 | MHC.OFFVIS ---
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 Mother Asthma Arthritis Fibromyalgia Brother Cerebral palsy Social History Household Members: Children Housing: Apartment Alcohol intake: current Alcohol intake frequency: does not drink Comment: N/A Patient Tobacco Use Status: Former Tobacco user Substance Use Type: Marijuana Gender identity: Female Female Reproductive History Menstrual Age of Menarche: 11 Coding
[2023-12-04 10:27] VITALS: BP 106/64; BMI 36.2
== END 2023-12-04 11:02 | disposition home or self-care (01) ==
PROVIDERS: PCP Student in an Organized Health Care Education/Training Program; Visit Provider Advanced Practice Midwife
DX: Z01.419 Encounter for gynecological examination (general) (routine) without abnormal findings (principal)
CPT/HCPCS: 99395

== ENCOUNTER 2023-12-04 10:23 | Outpatient (REF) | payer MEDICAID, SELFPAY ==
[2023-12-04 18:40] LABS: CT PCR NOT DETECTED (Not Detect.); NG PCR NOT DETECTED (Not Detect.)
[2023-12-05 09:48] LABS: Bacterial Vaginosis PCR NEGATIVE (Negative); Candida Group PCR NOT DETECTED (Not Detect); Candida glab krusei PCR NOT DETECTED (Not Detect); Trichomonas vaginalis PCR NOT DETECTED (Not Detect)
[2023-12-11 11:33] LABS: HPV mRNA E6/E7 Detected (Not Detected)
== END 2023-12-04 10:24 | disposition home or self-care (01) ==
LOC: HO.LNP 10:23
PROVIDERS: PCP Student in an Organized Health Care Education/Training Program; Visit Provider Advanced Practice Midwife
DX: Z01.419 Encounter for gynecological examination (general) (routine) without abnormal findings (principal); R87.810 Cervical high risk human papillomavirus (HPV) DNA test positive; R87.610 Atypical squamous cells of undetermined significance on cytologic smear of cervix (ASC-US); E28.2 Polycystic ovarian syndrome
CPT/HCPCS: 0352U; 0353U; 87624; 88142; 88175; 99395

== ENCOUNTER 2024-10-26 11:15 | Outpatient (REF) | payer MEDICAID, SELFPAY ==
--- OUTSIDE RECORDS SUMMARY | 2024-10-26 12:05 | XMS_ITS | Encounter Summary ---
Author Organization [employer] Address [address] [facility] [address] [place] [address] Care Team Providers Care Inbound Call Center Agent Name Role Phone Ellen Espitia MD Primary Care Provider [phone] Encounter Details Date Type Department Care Team (Latest Contact Info) Description 10/23/2024 10:00 AM EDT Office Visit [facility] [address] [place], [place] [id number] Josie Frazier MD [address] [place] [address] Polyarthralgia (Primary Dx); Chronic pain in left shoulder; Dietary counseling; Exercise counseling Social History Tobacco Use Types Packs/Day Years Used Date Smoking Tobacco: Former Cigarettes Q uit: 06/17/2013 Passive Smoke Exposure: Past Smokeless Tobacco: Never Alcohol Use Standard Drinks/Week Comments Never 0 (1 standard drink = 0.6 oz pur e alcohol) Housing Stability Answer Date Recorded What is your housing situation today? I have jung zamorano 07/18/[address] you li ve. Do you have problems with any of the following? None of the above 07/18/2023 Food Insecurity Answer Date Recorded Within the past 12 months, y ou worried that your food would run out before you got money to buy more: Often true 07/18/2023 Within the past 12 months,th e food you bought just didn't last and you didn't have enough money to get more: Often true 06/2023 Transportation Answer Date Recorded In the past 12 months, has l ack of transportation kept you from medical appts, meetings, work or from getting things needed for daily living? No 07/18/2023 Utilities Answer Date Recorded In the past 12 months, has t he electric, gas, oil or water company threatened to shut off services in your home? Yes 07/18/2023 Comments No Sex and Gender Information Value Date Recorded Sex Assigned at Female 04/16/2022 10:20 AM EDT Legal Sex Female 10:20 AM EDT Gender Identity Female 04/16/2022 10:20 AM EDT Sexual Orientation Straight 04/16/2022 10 :20 AM EDT documented as of this encounter Last Filed Vital Signs Vital Sign Reading Time Taken Comments Blood Pressure 116/72 10/23/2024 10:07 AM EDT Pulse 82 10/23/2024 10:07 AM EDT Temperature 36.9 ??C (98.5 ??F) 10/23/2024 10:07 AM E DT Respiratory Rate 20 10/23/2024 10:07 AM EDT Oxygen Saturation 96% 10/23/2024 10:07 AM EDT Inhaled Oxygen Concentration - - Weight 94.8 kg (209 lb) 10/23/2024 10:07 AM EDT Height 160 cm (5' 3 ) 10/23/2024 10:07 AM EDT Body Mass Index 37.02 10/23/2024 10:07 AM EDT documented in this encounter Progress Notes * Josie Frazier MD - 10/23/2024 10:00 AM EDT Subjective Patient ID: Myra Manzanares is a 33 y.o. female who presents for arthralgias of ankles,feet,elbows etc.. Myra is a 33 y/o female patient of Dr.Pai truong c/o polyarthralgia.Affecting feet,knees,ankles elbows etc.. Works a lot and is always on her feet.Patient unsure of rheumatoid arthritis in her familybut states her mom has lupus.Denies any rash etc.. Review of Systems Constitutional: Negative for activity change, chills, fever and unexpected weight change. Respiratory: Negative for cough, shortness of breath and wheezing. Cardiovascular: Negative for chest pain, palpitations and leg swelling. Gastrointestinal: Negative for abdominal pain and blood in stool. Endocrine: Negative for polydipsia and polyuria. Genitourinary: Negative for decreased urine volume, difficulty urinating, dysuria and hematuria. Musculoskeletal: Positive for arthralgias. Negative for gait problem and joint swelling. Skin: Negative for color change and rash. Neurological: Negative for dizziness and headaches. Hematological: Negative for adenopathy. Psychiatric/Behavioral: Negative for dysphoric mood, hallucinations, sleep disturbance and suicidalideas. The patient is not nervous/anxious. Objective BP 116/72 (BP Location: Left arm, Patient Position: Sitting, BP Cuff Size: Adult) Pulse82 Temp 98.5 ??F (36.9 ??C) (Oral) Resp 20 Ht 5' 3 (1.6 m) Wt 209 lb (94.8 kg) SpO2 96% BMI 37.02 kg/m?? Physical Exam Constitutional: General: She is not in acute distress. Appearance: She is obese. HENT: Head: Normocephalic. Eyes: Extraocular Movements: Extraocular movements intact. Conjunctiva/sclera: Conjunctivae normal. Pupils: Pupils are equal, round, and reactive to light. Cardiovascular: Rate and Rhythm: Normal rate and regular rhythm. Heart sounds: Normal heart sounds. No murmur heard. Pulmonary: Effort: Pulmonary effort is normal. No respiratory distress. Musculoskeletal: General: Tenderness present. No swelling. Right elbow: No swelling. Normal range of motion. Tenderness present in lateral epicondyle. Left elbow: No swelling. Normal range of motion. Tenderness present in lateral epicondyle. Right lower leg: No edema. Left lower leg: No edema. Right ankle: No swelling. Tenderness present. Normal range of motion. Left ankle: No swelling. Tenderness present. Normal range of motion. Skin: Findings: No rash. Neurological: Mental Status: She is alert and oriented to person, place, and time. Mental status is at baseline. Psychiatric: Mood and Affect: Mood normal. Behavior: Behavior normal. Thought Content: Thought content normal. Judgment: Judgment normal. Assessment/Plan Diagnoses and all orders for this visit: Polyarthralgia Comments: Check inflammatory markers, has mom with hx of lupus,check RISHI etc..Call with results once available.F/U with PCP set up. Get fasting labs ordered by PCP as well. Orders: - RISHI Screen,IFA, with Reflex to Titer and Pattern; Future - Lyme Disease Ab with Reflex to Blot (IgG, IgM); Future - Magnesium; Future - Vitamin B12/Folate, Serum Panel; Future - Vitamin D, 25-Hydroxy, Total, Immunoassay; Future - Rheumatoid Factor; Future - Sed Rate by Modified Westergren; Future Chronic pain in left shoulder Comments: Xray of left shoulder ordered. Call with results. Refer to pT etc.. if needed.Take nsaids prn.RTC if worsens. Orders: - XR Shoulder 2+ Views Left; Future Dietary Recommendations: Fruits, vegetables, whole grains, protein foods, and fat-free or low-fat dairy products are healthychoices. Eat different types of protein foods in your diet. This can include seafood, lean meats, poultry, beans, peas, lentils, nuts, seeds, soy products, and eggs. Limit foods and beverages higher in added sugars, saturated fat, and sodium. Exercise Recommendations: At least 150 minutes of moderate-intensity physical activity per week, or an equivalent combinationof moderate- and vigorous-intensity activity Dietary counseling Exercise counseling documented in this encounter Plan of Treatment Upcoming Encounters Date Type Department Care Team (Late st Contact Info) Description 12/24/2024 11:15 AM EDT Office Visit [facility] [address] [place] [address] Ellen Espitia MD [address] [place] [address] Scheduled Orders Name Type Priority Associated Diagnoses Orde r Schedule RISHI Screen,IFA, with Reflex to Titer and Pattern Lab Routine Polyarthralgia Expected: 10/23/2024 (Approximate), Expires: 10/23/2025 Lyme Disease Ab with Reflex to Blot (IgG, IgM) Lab Routine Polyarthralgia Expected: 10/23/2024, Expires: 10/23/2025 Magnesium Lab Routine Polyarthralgia Expected: 10/23/2024, Expires: 10/23/2025 Vitamin B12/Folate, Serum Panel Lab Routine Polyarthralgia Expected: 10/23/2024, Expires: 10/23/2025 Vitamin D, 25-Hydroxy, Total, Immunoassay Lab Routine Polyarthralgia Expected: 10/23/2024 (Approximate), Expires: 10/23/2025 Rheumatoid Factor Lab Routine Polyarthralgia Expected: 10/23/2024, Expires: 10/23/2025 Sed Rate by Modified Westergren Lab Routine Polyarthralgia Expected: 10/23/2024, Expires: 10/23/2025 XR Shoulder 2+ Views Left Imaging Routine Chronic pain in left shoulder Expected: 10/23/2024, Expires: 10/23/2025 documented as of this encounter Visit Diagnoses Diagnosis Polyarthralgia- Primary Pain in joint, multiple sites Chronic pain in left shoulder Pain in joint, shoulder region Dietary counseling Dietary surveillance and counseling Exercise counseling documented in this encounter Care Teams Inbound Call Center Agent Relationship Specialty Start Date End Date Ellen Espitia MD [address] [place] [id number] PCP - General Family Medicine 06/05/13 documented as of this encounter
--- OUTSIDE RECORDS SUMMARY | 2024-10-26 12:05 | XMS_ITS | Encounter Summary ---
Author Organization [employer] Address [address] [facility] [address] [place] [address] Care Team Providers Care Optical Instrument Inspector Name Role Phone Ellen Espitia MD Primary Care Provider Reason for Visit * Reason Onset Date Comments Reschedule 07/22/2023 Encounter Details Date Type Department Care Team ([facility] st Contact Info) Description 07/22/2023 Telephone [facility] MEDICINE [address] [place] [address] Ellen Espitia MD [address] [place] [address] Reschedule Social History Tobacco Use Types Packs/Day Years [...] services in your home? Yes 07/18/2023 Comments Unknown Sex and Gender Information Value Date Recorded Sex Assigned at Female 04/16/2022 10:20 AM EDT Legal Sex Female 10:20 AM EDT Gender Identity Female 04/16/2022 10:20 AM EDT Sexual Orientation Straight 04/16/2022 10 :20 AM EDT documented as of this encounter Miscellaneous Notes * Telephone Encounter - Candice Zazueta RN - 07/22/2023 12:53 PM EST Returned call to pt regarding message below. Pt agrees to r/s HDF on 07/25/23. * Telephone Encounter - Tuyet Raya - 07/22/2023 10:54 AM EST Tc from pt requesting r/s HDF appt. documented in this encounter Plan of Treatment Upcoming Encounters Date Type Department Care Team (Late st Contact Info) Description 12/24/2024 11:15 AM EDT Office Visit [facility] PEDS [address] [place] [address] Ellen Espitia MD [address] [place] [address] documented as of this encounter Visit Diagnoses Not on filedocumented in this encounter Care Teams Optical Instrument Inspector Relationship Specialty Start Date End Date Ellen Espitia MD [address] [place] [id number] PCP - General Family Medicine 06/05/13 documented as of this encounter
--- OUTSIDE RECORDS SUMMARY | 2024-10-26 12:05 | XMS_ITS | Encounter Summary ---
Author Organization [employer] Address [address] [place] [address] [address] [place] [address] Care Team Providers Care Sample Grinder Name Role Phone Ellen Espitia MD Primary Care Provider [phone] Reason for Visit * Reason Onset Date Comments Error 07/05/2023 Encounter Details Date Type Department Care Team (Late Contact Info) Description 07/05/2023 Telephone [facility] MED & PEDS [address] [place] [address] Ellen Espitia MD [address] [place] [address] Error Social History Tobacco Use Types Packs/Day Years Used Date Smoking Tobacco: Former Cigarettes Q uit: 06/17/2013 Passive Smoke Exposure: Past Smokeless Tobacco: Never Alcohol Use Standard Drinks/Week Comments Never 0 (1 standard drink = 0.6 oz pur e alcohol) Comments Unknown Sex and Gender Information Value Date Recorded Sex Assigned at Female 04/16/2022 10:20 AM EDT Legal Sex Female 10:20 AM EDT Gender Identity Female 04/16/2022 10:20 AM EDT Sexual Orientation Straight 04/16/2022 10 :20 AM EDT documented as of this encounter Plan of Treatment Upcoming Encounters Date Type Department Care Team (Late Contact Info) Description 12/24/2024 11:15 AM EDT Office Visit [facility] MED [facility] PEDS [address] [place] [address] Ellen Espitia MD [address] [place] [address] documented as of this encounter Visit Diagnoses Not on filedocumented in this encounter Care Teams Sample Grinder Relationship Specialty Start Date End Date Ellen Espitia MD [address] [place] [id number] PCP - General Family Medicine 06/05/13 documented as of this encounter
--- OUTSIDE RECORDS SUMMARY | 2024-10-26 12:05 | XMS_ITS | Encounter Summary ---
Author Organization [employer] Address [address] [facility] [address] [place] [address] Care Team Providers Care Copier Operator Name Role Phone Ellen Espitia MD Primary Care Provider [phone] Encounter Details Date Type Department Care Team (Latest Contact Info) Description 10/23/2024 Travel Social History Tobacco Use Types Packs/Day Years [...] Description 12/24/2024 11:15 AM EDT Office Visit [facility] MED & PEDS [address] [place] [address] Ellen Espitia MD [address] [place] [address] documented as of this encounter Visit Diagnoses Not on filedocumented in this encounter Care Teams Copier Operator Relationship Specialty Start Date End Date Ellen Espitia MD [address] [place] [id number] PCP - General Family Medicine 06/05/13 documented as of this encounter
--- OUTSIDE RECORDS SUMMARY | 2024-10-26 12:05 | XMS_ITS | Clinical Summary ---
Author Organization [employer] Address [address] [facility] 7[address] [place] [address] Care Team Providers Care Middle Card Tender Name Role Phone Ellen Espitia MD Primary Care Provider [phone] Allergies No known active allergies Medications Elastic Bandages & Supports (Wrist Splint) misc Wear splints on both wrists at night as needed for hand pain 2 Active clotrimazole (Clotrimazole Anti-Fungal) 1 % creamIndication s:Intertrigo Apply topically 2 times daily. 60 g 3 Active loratadine (Claritin) 10 MG tabletIndicatio ns:Cough in adult Take 1 tablet (10 mg) by mouth in the morning. 30 tablet 3 3 Active Adderall XR 20 MG 24 hr capsule Take 40 mg by mouth in the morning. 3 Active busPIRone (Buspar) 5 MG tablet Take 5 mg by mouth 2 times daily. 3 Active hydrOXYzine HCl (Atarax) 25 MG tablet Take 25 mg by mouth if needed in the morning and at bedtime. 3 Active ARIPiprazole (Abilify) 15 MG tablet TAKE 1 TABLET BY MOUTH EVERY MORNING 3 Active minoxidil (Rogaine) 2 % external solution Apply topically 2 times daily. 60 mL 2 4 Active witch rasheed-glycerin (Tucks) pad Apply topically if needed for irritation. 100 each 3 4 Active ibuprofen 800 MG tablet TAKE 1 TABLET BY MOUTH EVERY 8 HOURS WITH FOOD NEEDED 5 Active Active Problems Problem Noted Date Diagnosed Date ASCUS (atypical squamous kalyan ls of undetermined significance) on gynecologic Papanicolaou smear complicating , antepartum 04/16/2024 Upper respiratory tract infection 09/23/2023 Assessment & Plan (09/23/2023 9:57 AM EDT): Likely viral. Rapid testing negative, will send out PCR. Patient with some duration of rhinosinus symptoms will send trial of Z pack, recommend supportive care. Ureteropelvic junction calculus 07/25/2023 BV (bacterial vaginosis) 07/12/2023 Kidney stones 07/11/2023 Viral upper respiratory tract infection 07/13/19 Assessment & Plan (07/13/2022 4:17 PM EST): Rhinosinusitis likely viral recommended supportive care. Will send decongestant-expectorant. If symptoms persist more then 10 days can consider antibiotics. Intertrigo 07/13/2022 Assessment & Plan (07/13/2022 4:17 PM EST): Not seen on examination, but patient showed me a picture of her left sided inguinal area with rash c/w candidal intertrigo. RX sent. Allergic rhinitis 11/15/2011 Lumbago 11/15/2011 Vitamin D deficiency 11/15/2011 Encounters Date Type Department Care Team Description 10/23/2024 10:00 AM EDT Office Visit [facility] MED & PEDS [address] [place] [address] Josei Frazier MD Polyarthralgia (Primary Dx); Chronic pain in left shoulder; Dietary counseling; Exercise counseling 10/23/2024 Travel 10/22/2024 Telephone [facility] MEDICINE [address] [place], [place] [phone] Ellen Espitia MD Nurse Triage 08/28/2024 Population Health Risk Score Community Care [facility] ([facility]) Department [address] [id number] Provider, Population Health Generic from Last 3 Months Immunizations Name Administration Dates Next Due Hep B, Adolescent or Pediatric 12/25/2004,2002,12/25/2002 Hib (HbOC) 05/18/1991,01/02/1991 IPV 1993, 1,05/12/1990,1989 Influenza, IIV3, injectable 03/01/2009 MMR 08/26/1993,01/02/1991 Pfizer Covid-19 Vaccine 12+ 05/19/2021, 1 TD (adult), 2 Lf tetanus tox oid, preservative free, adsorbed 08/12/2018 Tdap 12/25/2002, 4,05/18/1991,1990,05/12/1990,02/25/1990 Social History Tobacco Use Types Packs/Day Years Used Date Smoking Tobacco: Former Cigarettes Q uit: 06/17/2013 Passive Smoke Exposure: Past Smokeless Tobacco: Never Tobacco Cessation:Counseling Given: Not Answered Alcohol Use Standard Drinks/Week Comments Never 0 [...] Orientation Straight 04/16/2022 10 :20 AM EDT Last Filed Vital Signs Vital Sign Reading [...] Mass Index 37.02 10/23/2024 10:07 AM EDT Plan of Treatment Upcoming Encounters Date Type Department Care Team (Late st Contact Info) Description 12/24/2024 11:15 AM EDT Office Visit [facility] MED & PEDS [address] [place] [address] Ellen Espitia MD [address] [place] [address] Health Maintenance Due Date Last Done Comments Depression Screening 1989 Lipid Panel 1989 Alcohol/Substance Use Screening 2001 Family Planning (PISQ) 2004 Cervical Cancer Screening 10/25/2022 HPV/Cotest 10/25/2022 09/15/2021, 04/0 06/2021, 09/15/2021, Additional history exists Pap Smear 10/25/2022 09/15/2021, 08/03/2020 COVID-19 Vaccine ( - season) 2024 05/19/2021, 04/27/2021 Influenza Vaccine (#1) 2024 03/01/2009 SDOH Screening 07/18/2024 07/18/2023 Tobacco Screening 10/23/2025 10/23/2024 DTaP/Tdap/Td Vaccines (3 - Td or Tdap) 08/12/2028 08/12/2018, 12/25/2002, 1993, Additional history exists Zoster Vaccines (1 of 2) 12/20/2039 RSV Patients and Patients Aged 60 years or older (1 - 1-dose 75+ series) 2064 HIB Vaccines Completed 05/18/1991, 01/02/1991 IPV Vaccines Completed 1993, 07/1990, 05/12/1990, Additional history exists Hepatitis B Vaccines Completed 12/25/2004, 03/26/2003, 12/25/2002 HIV Screening Completed 08/22/2022 Hepatitis C Screening Completed 09/04/2022 HPV Vaccines Aged Out No longer eligi ble based on patient's age to complete this topic Hepatitis A Vaccines Aged Out No long er eligible based on patient's age to complete this topic Meningococcal Vaccine Aged Out No pelon matt eligible based on patient's age to complete this topic Pneumococcal Vaccine: Pediatrics (0 to 5 Years) and At-Risk Patients (6 to 49) Years) Aged Out No longer eligible based on patient's age to complete this topic RSV under 20 months Aged Out No longe r eligible based on patient's age to complete this topic Rotavirus Vaccines Aged Out No longer eligible based on patient's age to complete this topic Procedures Procedure Name Priority Date/Time Associated Diagnosis Comments HEPATITIS PANEL, GENERAL Routine 09/04/2022 10:41 AM EDT Elevated liver function tests HIV 1/2 ANTIGEN/ANTIBODY, FOURTH GENERATION W/RFL Routine 08/22/2022 9:40 AM EST Oral thrush HM PAP/HPV Routine 09/15/2021 from Last 3 Months or Most Recently Relevant to Health Maintenance Results * (ABNORMAL) Hepatitis Panel, General (09/04/2022 10:41 AM EDT) Hepatitis A Antibody Total NON-REACT GATITO NON-REACT [employer] [place] [employer] Comment: For additional information, please refer to http://education.LiveData/faq/HCS899 (This link is being provided for informational/ educational purposes only.) Hepatitis B Surface Antibody QL REACTIVE( A) NON-REACT [employer] [place] [facility] Hepatitis B Surface Ag NON-REACT GATITO NON-REACT [employer] [place] [facility] Hepatitis B Core Antibody Total NON-REACT GATITO NON-REACT [employer] [facility] Hepatitis C Antibody NON-REACT GATITO NON-REACT GATITO [facility] Index 0.07 <1.00 [employer] Comment: HCV antibody was non-reactive. There is no laboratory evidence of HCV infection. In most cases, no further action is required. However, if recent HCV exposure is suspected, a test for HCV RNA (test code 65680) is suggested. For additional information please refer to http://eHarmony.LiveData/faq/IJL16f1 (This link is being provided for informational/ educational purposes only.) 09/04/2022 10:4 1 AM EDT 09/04/2022 10:42 AM EDT us Lebron Lozano MD LAB BLOOD ORDERABLES Final Result [facility] [address], [place] [address] [employer] [place] [facility] [address] [place] [address] * HIV-1/2 Antigen and Antibodies, Fourth Generation, with Reflexes (08/22/2022 9:40 AM EST) HIV Antigen/Antibody, 4th Generation NON-REAC TIVE NON-REAC TIVE [employer] [place] [facility] Comment: HIV-1 antigen and HIV-1/HIV-2 antibodies were not detected. There is no laboratory evidence of HIV infection. PLEASE NOTE: This information has been disclosed to you from records whose confidentiality may be protected by state law. ??If your state requires such protection, then the state law prohibits you from making any further disclosure of the information without the specific written consent of the person to whom it pertains, or as otherwise permitted by law. A general authorization for the release of medical or other information is NOT sufficient for this purpose. ?? For additional information please refer to http://eHarmony.LiveData/faq/QVX184 (This link is being provided for informational/ educational purposes only.) The performance of this assay has not been clinically validated in patients less than 2 years old. Blood Venous blood specimen / Unknown 08/22/2022 9:40 AM EST 08/22/2022 9:41 AM EST Lebron Lozano MD LAB BLOOD ORDERABLES Final Result [facility] [address] [facility], 3rd Fl, [place] [address] [employer] [address] [facility], (Nl2) [place] [address] * (ABNORMAL) Pap Smear (09/15/2021) Pap Epithelial cell abnormality(A ) Negative for intraephithelial lesion or malignancy, Other HPV Detected Historical Provider HEALTH MAINTENANCE Final Result from Last 3 Months or Most Recently Relevant to Health Maintenance [facility] Care Teams Middle Card Tender Relationship Specialty Start Date End Date Ellen Espitia MD [address] [place] [address] PCP - General Family Medicine 06/05/13
--- OUTSIDE RECORDS SUMMARY | 2024-10-26 12:05 | XMS_ITS | Encounter Summary ---
Author Organization [employer] Address [address] [facility] 7t [place] [address] Care Team Providers Care Electronics Mechanic Apprentice Name Role Phone Ellen Espitia MD Primary Care Provider [phone] Reason for Referral * Imaging (Routine) - Closed Specialty Diagnoses / Procedures Referred By Contac t Referred To Contact Diagnoses Elevated liver function tests Procedures US Abdomen Limited Lebron Lozano MD [address] [place] [address] Phone: tel: fax: Diagnostic Imaging, [facility] [address] [facility] [address] [place] [address] Phone: tel: fax: Referral ID Status Reason Start Date Expiration Date Visits Re quested Visits Authorized [id number] Closed 08/24/2022 02/20/2023 1 1 Encounter Details Date Type Department Care Team ([facility] st Contact Info) Description 08/24/2022 Orders Only [facility] MED & PEDS [address] [place], [place] [phone] Lebron Lozano MD [address] [place], [place] [phone] Elevated liver function tests (Primary Dx) Social History Tobacco Use Types Packs/Day Years [...] Orientation Straight 04/16/2022 10 :20 AM EDT COVID-19 Exposure Response Date Recorded In the last 10 days, have yo u been in contact with someone who was confirmed or suspected to have Coronavirus/COVID-19? No / Unsure 08/22/2022 8:58 AM EST documented as of this encounter Plan of Treatment Upcoming Encounters Date Type Department Care Team (Late st Contact Info) Description 12/24/2024 11:15 AM EDT Office Visit [facility] MED & PEDS [address] [place] [address] Ellen Espitia MD [address] [place] [address] Scheduled Orders Name Type Priority Associated Diagnoses Orde r Schedule US Abdomen Limited Imaging Routine Elevated liver function tests Expected: 08/24/2022, Expires: 08/25/2023 documented as of this encounter Procedures Procedure Name Priority Date/Time Associated Diagnosis Comments HEPATITIS PANEL, GENERAL Routine 09/04/2022 10:41 AM EDT Elevated liver function tests documented in this encounter Results * (ABNORMAL) Hepatitis Panel, General (09/04/2022 10:41 AM EDT) Hepatitis A Antibody Total NON-REACT GATITO NON-REACT [employer] [place] [employer] Comment: For additional information, please refer to http://education.BuysideFX/faq/KTK577 (This link is being provided for informational/ educational purposes only.) Hepatitis B Surface Antibody QL REACTIVE( A) NON-REACT [employer] [place] [employer] Hepatitis B Surface Ag NON-REACT GATITO NON-REACT [employer] [place] [employer] Hepatitis B Core Antibody Total NON-REACT GATITO NON-REACT [employer] [place] [employer] Hepatitis C Antibody NON-REACT GATITO NON-REACT [facility] [facility] [place] Index 0.07 <1.00 [employer] [place] [employer] Comment: HCV antibody was non-reactive. There is no laboratory evidence of HCV infection. In most cases, no further action is required. However, if recent HCV exposure is suspected, a test for HCV RNA (test code 16998) is suggested. For additional information please refer to http://education.BuysideFX/faq/EIU71b6 (This link is being provided for informational/ educational purposes only.) 09/04/2022 10:4 1 AM EDT 09/04/2022 10:42 AM EDT us Lebron Lozano MD LAB BLOOD ORDERABLES Final Result [facility] [address], [place] [address] [employer] [place] [employer] [address] [place] [address] documented in this encounter Visit Diagnoses Diagnosis Elevated liver function tests- Primary Other abnormal blood chemistry documented in this encounter Care Teams Electronics Mechanic Apprentice Relationship Specialty Start Date End Date Ellen Espitia MD [address] [place] [address] PCP - General Family Medicine 06/05/13 documented as of this encounter
--- OUTSIDE RECORDS SUMMARY | 2024-10-26 12:05 | XMS_ITS | Encounter Summary ---
Author Organization [employer] Address [address] [facility] 7t [place] [address] Care Team Providers Care Botany Teacher Name Role Phone Ellen Espitia MD Primary Care Provider [phone] Encounter Details Date Type Department Care Team (Late Contact Info) Description 03/18/2023 Abstract [facility] MEDICINE [address] [place] [address] Ellen Espitia MD [address] [place] [address] Social History Tobacco Use Types Packs/Day Years [...] Description 12/24/2024 11:15 AM EDT Office Visit [facility] CHC MED & PEDS [address] [place], [place] [phone] Ellen Espitia MD [address] [place] [address] documented as of this encounter Procedures Procedure Name Priority Date/Time Associated Diagnosis Comments BIOPSY CERVIX Routine 10/25/2021 HM PAP/HPV Routine 09/15/2021 BIOPSY CERVIX Routine 09/02/2020 PAP/HPV Routine 08/03/2020 documented in this encounter Results * Biopsy cervix (10/25/2021) [facility] Provider IN CLINIC/BEDSIDE ORDERAB LES Final Result * (ABNORMAL) Pap Smear (09/15/2021) Pap Epithelial cell abnormality(A ) Negative for intraephithelial lesion or malignancy, Other HPV Detected Result [facility] Provider HEALTH MAINTENANCE Final Result * Biopsy cervix (09/02/2020) [facility] Provider IN CLINIC/BEDSIDE ORDERAB LES Final Result * (ABNORMAL) Pap Smear (08/03/2020) Pap Epithelial cell abnormality(A ) Negative for intraephithelial lesion or malignancy, Other HPV Detected [facility] Provider HEALTH MAINTENANCE Final Result documented in this encounter Visit Diagnoses Not on filedocumented in this encounter Care Teams Botany Teacher Relationship Specialty Start Date End Date Ellen Espitia MD [address] [place] [address] PCP - General Family Medicine 06/05/13 documented as of this encounter
--- OUTSIDE RECORDS SUMMARY | 2024-10-26 12:05 | XMS_ITS | Encounter Summary ---
Author Organization [employer] Address [address] [facility] 7t [place] [address] Care Team Providers Care Training Generalist Name Role Phone Ellen Espitia MD Primary Care Provider [phone] Reason for Visit * Reason Onset Date Comments Nurse Triage 10/22/2024 Encounter Details Date Type Department Care Team ([facility] st Contact Info) Description 10/22/2024 Telephone [facility] MEDICINE [address] [place] [address] Ellen Espitia MD [address] [place] [address] Nurse Triage Social History Tobacco Use Types Packs/Day Years [...] the past 12 months, has t he [employer], [employer], oil or water [employer] threatened to shut off services in your home? Yes 07/18/2023 Comments No Sex and Gender Information Value Date Recorded Sex Assigned at Female 04/16/2022 10:20 AM EDT Legal Sex Female 10:20 AM EDT Gender Identity Female 04/16/2022 10:20 AM EDT Sexual Orientation Straight 04/16/2022 10 :20 AM EDT documented as of this encounter Miscellaneous Notes * Telephone Encounter - Indu Weinstein RN - 10/22/2024 3:10 PM EDT called pt to triage, spoke to pt. pt states for several weeks now, having pain bilateral feet and ankles. pt also states knees pop a lot when standing up. pt denies swelling, redness, inability to stand or walk, or other associated symptoms. given appt tomorrow with [facility] at 10:00 for exam. advised home care: rest, fluids, ice, heat, OTC pain reliever as needed, and call back if worsening or new concerns. pt understands and agrees with plan. insurance verified.. Protocol Used: Foot Pain (Adult) Protocol-Based Disposition: See in Office or Video Visit within 3 Days Video visit offer not recorded Positive Triage Question: * Patient wants to be seen * All higher-acuity triage questions were negative Care Advice Discussed: * Reassurance and Education - Foot Pain * Reassurance and Education - Overuse * Foot Pain - Aggravating Factors * Pain Medicines * Reasons To Call Back - Swelling, redness, or fever occur - Severe pain not relieved by pain medicine - Pain lasts over 7 days - You become worse * Telephone Encounter - Jossie Schmitt - 10/22/2024 2:16 PM EDT Symptoms: Foot or Ankle Pain (a month ago) - Not From Injury, Fall (2 days ago) Outcome: Schedule an appointment to be seen within 24 hours Reason: Caller denied all higher acuity questions The caller accepted this outcome. [phone] documented in this encounter Plan of Treatment Upcoming Encounters Date Type Department Care Team (Late st Contact Info) Description 12/24/2024 11:15 AM EDT Office Visit [facility] MED & PEDS [address] [place] [address] Ellen Espitia MD [address] [place] [address] documented as of this encounter Visit Diagnoses Not on filedocumented in this encounter Care Teams Training Generalist Relationship Specialty Start Date End Date Ellen Espitia MD [address] [place] [address] PCP - General Family Medicine 06/05/13 documented as of this encounter
[2024-10-26 14:42] LABS: Rheumatoid Factor < 13.0 IU/mL (<15.0)
[2024-10-26 14:57] LABS: Vitamin D 25-OH Total 16.2 ng/mL (>30)
[2024-10-26 15:11] LABS: Erythrocyte Sedimentation Rate 5 MM/HR (0-20); Vitamin B12 442 pg/mL (200-900)
[2024-10-27 09:38] LABS: Lyme Abs Screen <0.90 index
[2024-10-29 13:43] LABS: Anti Nuclear Antibody Screen POSITIVE (NEGATIVE)
== END 2024-10-26 11:16 | disposition home or self-care (01) ==
LOC: HO.CHCLDS 11:15
PROVIDERS: Visit Provider Pediatrics
DX: M25.50 Pain in unspecified joint (principal)
CPT/HCPCS: 36415; 82306; 82607; 82746; 83735; 85652; 86038; 86039; 86431; 86617; 86618

== ENCOUNTER 2025-01-20 10:06 | Outpatient (AMB) | payer MEDICAID, SELFPAY ==
--- NOTE | 2025-01-20 10:32 | MHC.OFFVIS ---
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 States her right is worse than her left hand. Symptom's started about 6-7 months and has not improved. States symptoms are on and off through out the day daily and at times wakes her up from sleep. She has tried braces with no relief. Patient is interested in discussing treatment. She is also No EMG done. Denies injury, or locking of any finger. 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 She complains of numbness and tingling in both hands right worse than left this has been going on for about 6-7 months. He thinks it is all the fingers of her hands. She also reports having some pains in the joints of her hand and fingers. Denies locking and catching PFSH Medical History Migraine GERD (gastroesophageal reflux disease) Amenorrhea PCOS (polycystic ovarian syndrome) Nephrolithiasis Obesity (BMI 30-39.9) Obesity Surgical History Hx of section Family History Father No problems noted. 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 Gender identity: Female Female Reproductive History Menstrual Age of Menarche: 11 Physical Exam Vital Signs: BMI result Body Mass Index 36.7 Const General: cooperative, healthy appearing and no acute distress Orientation/consciousness: oriented to person and oriented to place HEENT Head: Yes normocephalic and Yes atraumatic Eyes EOM: EOMs intact bilaterally Resp Effort & Inspection: normal respiratory effort and able to speak in complete sentences Cardio Jugular venous distension: no JVD Skin General skin exam: turgor normal Rashes: no rashes Neuro General: oriented to person and oriented to place Extrem Other: Evaluation of bilateral Upper Extremity: Neuro: Median, ulnar, radial nerves motor and sensory intact. No thenar or intrinsic wasting. Good finger abduction, adduction and APB muscle belly firing Vascular: Cap refill brisk. ROM: Can bring fingers closed to a fist and back out to full extension. No locking or catching Can oppose thumb to fingertips Smooth and painless wrist ROM Skin: No lacerations or abrasions. General: No eccymosis. No erythema or evidence of infection. Psych Appearance: grossly normal Affect: normal affect Attitude: cooperative Assessment & Plan Assessment & Plan (1) Bilateral hand numbness: Code(s): R20.0 - Anesthesia of skin Category: Medical Plan Assessment and plan: 1. Bilateral hand numbness and tingling Symptoms intermittent but daily I educated her about this condition I have ordered an EMG nerve conduction study. She will follow up after the study I have also asked her to pay attention to whether or not she actually gets numbness and tingling in her small finger. Orders: Orders NE electromyogram (EMG) Today R20.0 - Anesthesia of skin, R20.2 - Paresthesia of skin NE nerve conduction velocity Today R20.0 - Anesthesia of skin, R20.2 - Paresthesia of skin Coding Level of Care Code New Pt Level 3 (05641) Diagnoses Bilateral hand numbness R20.0
[2025-01-20 10:34] VITALS: BMI 36.7
--- OUTSIDE RECORDS SUMMARY | 2025-01-20 10:40 | XMS_ITS | Clinical Summary ---
Author Organization [employer] [facility] it Address [address] [place] [address] Care Team Providers Care Library Clerk Talking Books Name Role Phone Unavailable Primary Care Provider Unavailabl e Social History Tobacco Use Types Packs/Day Years Used Date Smoking Tobacco: Never Assessed Comments Unknown Sex and Gender Information Value Date Recorded Sex Assigned at Not on file Legal Sex Female 10:48 PM EST Gender Identity Not on file Sexual Orientation Not on file Plan of Treatment Health Maintenance Due Date Last Done Comments DTaP,Tdap,and Td Vaccines (1 - Tdap) 2008 Hepatitis B Vaccines (1 of 3 - 19+ 3-dose series) 2008 Cervical Cancer Screening: P ap Smear 2010 HIV Screening 05/20/2022 Hepatitis C Screening 05/20/2022 Social Influencers of Health Screening 05/20/2022 COVID-19 Vaccine ( - 2023-2 5 season) 2024 Depression Screening 06/17/2024 Influenza Vaccine (#1) 2025 HIB Vaccines Aged Out No longer eligi ble based on patient's age to complete this topic HPV Vaccines Aged Out No longer eligi ble based on patient's age to complete this topic Hepatitis A Vaccines Aged Out No long er eligible based on patient's age to complete this topic IPV Vaccines Aged Out No longer eligi ble based on patient's age to complete this topic MMR Vaccines Aged Out No longer eligi ble based on patient's age to complete this topic Meningococcal ACWY Vaccine Aged Out N o longer eligible based on patient's age to complete this topic Meningococcal B Vaccine Aged Out No l onger eligible based on patient's age to complete this topic Pneumococcal Vaccine: Pediat rics (0 to 5 Years) and At-Risk Patients (6 to 49 Years) Aged Out No longer eligible b ased on patient's age to complete this topic RSV Immunization Patients Un josep 20 months Aged Out No longer eligible b ased on patient's age to complete this topic Varicella Vaccines Aged Out No longer eligible based on patient's age to complete this topic
--- OUTSIDE RECORDS SUMMARY | 2025-01-20 10:40 | XMS_ITS | Encounter Summary ---
Author Organization [employer] Address [address] [facility] 7t [place] [address] Care Team Providers Care Canvas Shrinker Name Role Phone Ellen Espitia MD Primary Care Provider [phone] Reason for Referral * Imaging (Routine) - Closed Specialty Diagnoses / Procedures Referred By Contac t Referred To Contact Diagnoses Elevated liver function tests Procedures US Abdomen Limited Lebron Lozano MD [address] [place] [address] Phone: tel: fax: Diagnostic Imaging, [facility] [facility] [address] [place] [address] Phone: tel: fax: Referral ID Status Reason Start Date Expiration Date Visits Re quested Visits Authorized [id number] Closed 08/24/2022 02/20/2023 1 1 Encounter Details Date Type Department Care Team (Late st Contact Info) Description 08/24/2022 Orders Only [facility] CH[facility] MED & PEDS [address] [place] [address] Lebron Lozano MD [address] [place] [address] Elevated liver function tests (Primary Dx) Social [...] as of this encounter Plan of Treatment Scheduled Orders Name Type Priority Associated Diagnoses [...] Hepatitis A Antibody Total NON-REACT GATITO NON-REACT GATITO [employer] [place] [employer] Comment: For additional information, please refer to [email or web address] (This link is being provided for informational/ educational purposes only.) Hepatitis B Surface Antibody QL REACTIVE( A) NON-REACT GTAITO [employer] [place] [facility] Hepatitis B Surface Ag NON-REACT GATITO NON-REACT GATITO [employer] [place] [facility] [employer] Hepatitis B Core Antibody Total NON-REACT GATITO NON-REACT GATITO [employer] [place] [facility] [employer] Hepatitis C Antibody NON-REACT GATITO NON-REACT GATITO [facility] [place] [facility] Diagn[facility] Index 0.07 <1.00 [employer], [employer] Comment: HCV antibody was non-reactive. There is no laboratory evidence of HCV infection. In most cases, no further action is required. However, if recent HCV exposure is suspected, a test for HCV RNA (test code 75342) is suggested. For additional information please refer to [email or web address]/ZVB59v1 (This link is being provided for informational/ educational purposes only.) 09/04/2022 10:4 1 AM EDT 09/04/2022 10:42 AM EDT us Lebron Lozano MD LAB BLOOD ORDERABLES Final Result [facility] [address] [place] [address], [place] [address] [facility] [address] [place] [address] documented in this encounter Visit Diagnoses Diagnosis Elevated liver function tests- Primary Other abnormal blood chemistry documented in this encounter Care Teams Canvas Shrinker Relationship Specialty Start Date End Date Ellen Espitia MD [address] [place] [address] PCP - General Family Medicine 06/05/13 documented as of this encounter
== END 2025-01-20 10:55 | disposition home or self-care (01) ==
LOC: HO.HOS 10:07
PROVIDERS: PCP Student in an Organized Health Care Education/Training Program; Visit Provider Orthopaedic Surgery
DX: R20.0 Anesthesia of skin (principal)
CPT/HCPCS: 99203

== ENCOUNTER → 2025-01-20 10:06 | Outpatient (BNVA) | payer MEDICAID, SELFPAY | PROVIDERS: PCP Student in an Organized Health Care Education/Training Program; Visit Provider Orthopaedic Surgery | DX: R20.0 Anesthesia of skin (principal); R20.2 Paresthesia of skin | CPT/HCPCS: 99202 ==

== ENCOUNTER 2025-03-31 14:58 | Outpatient (REF) | payer MEDICAID, SELFPAY ==
--- NOTE | 2025-03-31 15:02 | EMG_ITS ---
Chief complaint: On and off bilateral hand numbness, right worse than left Reason for referral: Evaluate for Carpal Tunnel Syndrome Referred by: Dr. Olguin Procedure done: Bilateral upper extremities NCS Precautions and/or limitations: Patient unable to tolerate needles The limb temperature was monitored continuously and remained between 32-36 degrees C during the performance of the NCS. Nerve Conduction Studies Anti Sensory Summary Table ?Stim Site NR Onset (ms) Norm Onset (ms) Peak (ms) Norm Peak (ms) O-P Amp (?V) Norm O-P Amp Site1 Site2 Delta-0 (ms) Dist (cm) Joe (m/s) Norm Joe (m/s) Left Median Anti Sensory (2nd Digit) Wrist ? 2.7 3.5 <3.6 35.2 >10 Wrist 2nd Digit 2.7 14.0 52 Right Median Anti Sensory (2nd Digit) Wrist ? 3.0 3.8 <3.6 29.1 >10 Wrist 2nd Digit 3.0 14.0 47 Left Ulnar Anti Sensory (5th Digit) Wrist ? 2.3 2.8 <3.7 47.5 >15.0 Wrist 5th Digit 2.3 14.0 61 Right Ulnar Anti Sensory (5th Digit) Wrist ? 2.3 3.0 <3.7 39.3 >15.0 Wrist 5th Digit 2.3 14.0 61 Motor Summary Table ?Stim Site NR Onset (ms) Norm Onset (ms) O-P Amp (mV) Norm O-P Amp iAmp (mV) Amp (1st) (%) Site1 Site2 Delta-0 (ms) Dist (cm) Joe (m/s) Norm Joe (m/s) Left Median Motor (Abd Poll Brev) Wrist ? 3.6 <3.9 14.6 >4.5 17.2 100.0 Elbow Wrist 3.3 19.0 58 >45 Elbow ? 6.9 12.3 15.4 84.2 Right Median Motor (Abd Poll Brev) Wrist ? 3.6 <3.9 14.2 >4.5 17.3 100.0 Elbow Wrist 3.3 18.0 55 >45 Elbow ? 6.9 13.4 16.4 94.4 Left Ulnar Motor (Abd Dig Minimi) Wrist ? 2.3 <3.0 11.0 >5 14.0 100.0 B Elbow Wrist 3.0 17.0 57 >45 B Elbow ? 5.3 10.8 14.0 98.2 A Elbow B Elbow 1.5 10.0 67 >45 A Elbow ? 6.8 11.0 13.8 100.0 Right Ulnar Motor (Abd Dig Minimi) Wrist ? 2.6 <3.0 10.0 >5 12.2 100.0 B Elbow Wrist 2.7 17.0 63 >45 B Elbow ? 5.3 9.9 12.2 99.0 A Elbow B Elbow 1.3 10.0 77 >45 A Elbow ? 6.6 10.1 11.9 101.0 Comparison Summary Table ?Stim Site NR Peak (ms) Norm Peak (ms) P-T Amp (?V) Site1 Site2 Delta-P (ms) Norm Delta (ms) Left Median/Radial Dig I Comparison (Digit 1 - 10cm) Median ? 2.8 <2.9 49.7 Median Radial 0.9 Radial ? 1.9 <2.8 20.0 Right Median/Radial Dig I Comparison (Digit 1 - 10cm) Median ? 2.8 <2.9 41.2 Median Radial 0.8 Radial ? 2.0 <2.8 23.8 FINDINGS: Right median sensory nerve showed prolonged peak latency. Significant interlatency difference between median and radial sensory nerves, bilateral. All other nerves tested were within normal. Needle EMG deferred. IMPRESSION: 1. This is an abnormal nerve conduction study. 2. There is electrodiagnostic evidence for right mild and left borderline median neuropathy at the wrist, consistent with carpal tunnel syndrome. 3. There is no electrodiagnostic evidence for ulnar neuropathy. Thank you for your kind referral. Maria Del Carmen Pascual MD, LIZ Board Certified, [place] Board of Physical Medicine and Rehabilitation (ABPMR) Board Certified, [place] Board of Electrodiagnostic Medicine (ABEM) CODIN 5 [phone] MTDD
--- OUTSIDE RECORDS SUMMARY | 2025-03-31 18:40 | XMS_ITS | Clinical Summary ---
Author Organization [employer] Address 75 [facility] 7t [place] [address] Care Team Providers Care French Folder Name Role Phone Lebron Lozano MD Primary Care Provider Allergies No known active allergies Medications * This document contains information received from the source organization and may not represent a complete record from that organization. Elastic Bandages & Supports (Wrist Splint) [facility] Wear splints on both wrists at night as needed for hand pain 02/03/20 22 Active clotrimazole (Clotrimazole Anti-Fungal) 1 % creamIndicatio ns:Intertrigo Apply topically 2 times daily. 60 g 07/13/19 23 Active loratadine (Claritin) 10 MG tabletIndicati ons:Cough in adult Take 1 tablet (10 mg) by mouth in the morning. 30 tablet 3 08/23/19 23 Active Adderall XR 20 MG 24 hr capsule Take 40 mg by mouth in the morning. 03/12/20 23 Active busPIRone (Buspar) 5 MG tablet Take 5 mg by mouth 2 times daily. 03/11/20 23 Active hydrOXYzine HCl (Atarax) 25 MG tablet Take 25 mg by mouth if needed in the morning and at bedtime. 03/12/20 23 Active ARIPiprazole (Abilify) 15 MG tablet TAKE 1 TABLET BY MOUTH EVERY MORNING 05/13/20 23 Active minoxidil (Rogaine) 2 % external solution Apply topically 2 times daily. 60 mL 2 04/16/20 24 Active witch rasheed-glycerin (Tucks) pad Apply topically if needed for irritation. 100 each 3 04/16/20 24 Active ibuprofen 800 MG tablet TAKE 1 TABLET BY MOUTH EVERY 8 HOURS WITH FOOD NEEDED 10/14/19 25 Active ergocalciferol (Vitamin D2) 1.25 MG (06193 UT) capsule Take 1 capsule (1.25 mg) by mouth 1 (one) time per week. 15 capsule 11/03/19 25 Active Diclofenac Sodium (Voltaren) 1 % gel Use topical BID 100 g 3 12/26/19 25 Active celecoxib (CeleBREX) 50 MG capsule Take 1 capsule (50 mg) by mouth 2 times daily. 60 capsule 11 03/18/20 25 026 Active celecoxib (CeleBREX) 50 MG capsule 02/17/20 25 025 Discontinued(Re order (will not trigger notification to Pharmacy)) doxycycline (Vibra-Tabs) 100 MG tabletIndicati ons:Abscess Take 1 tablet (100 mg) by mouth 2 times daily for 7 days. Take with a full glass of water and do not lie down for at least 30 minutes after. 14 tablet 03/22/20 25 025 Active Problems Problem Noted Date Diagnosed Date ASCUS (atypical squamous kalyan ls of undetermined significance) on gynecologic Papanicolaou smear complicating , antepartum 04/16/2024 Ureteropelvic junction calculus 07/25/2023 Kidney stones 07/11/2023 Intertrigo 07/13/2022 Assessment & Plan (07/13/2022 4:17 PM EST): Not seen on examination, but patient showed me a picture of her left sided inguinal area with rash c/w candidal intertrigo. RX sent. Allergic rhinitis 11/15/2011 Lumbago 11/15/2011 Vitamin D deficiency 11/15/2011 Resolved Problems Problem Noted Date Diagnosed Date Resolved Date Upper respiratory tract infection 09/23/2023 03/18/2025 Assessment & Plan (09/23/2023 9:57 AM EDT): Likely viral. Rapid testing negative, will send out PCR. Patient with some duration of rhinosinus symptoms will send trial of Z pack, recommend supportive care. BV (bacterial vaginosis) 07/12/202307/2024 Viral upper respiratory tract infection 07/13/2022 03/18/2025 Assessment & Plan (07/13/2022 4:17 PM EST): Rhinosinusitis likely viral recommended supportive care. Will send decongestant-expectorant. If symptoms persist more then 10 days can consider antibiotics. Encounters * This document contains information received from the source organization and may not represent a complete record from that organization. Date Type Department Care Team Description 03/22/2025 3:40 PM EDT Office Visit [facility] MED & PEDS [address] [place] [address] Christelle Alas MD Abscess (Primary Dx); Right calf pain; Bilateral foot pain 03/22/2025 Travel 03/22/2025 Telephone [facility] [address] [place] [address] Lebron Lozano MD Medication Question 03/22/2025 Telephone [facility] [address] [place] [address] Ellen Espitia MD Nurse Triage 03/18/2025 9:30 AM EDT Office Visit [facility] PEDS [address] [place] [address] Ellen Espitia MD Chronic bilateral low back pain without sciatica (Primary Dx); Vitamin D deficiency; Bleeding hemorrhoids 03/18/2025 Travel 03/12/2025 Telephone [facility] MEDICINE [address] [place] [address] Ellen Espitia MD Appointment 03/02/2025 Telephone [facility] [address] [place] [address] Ellen Espitia MD Chart Prep 02/11/2025 Telephone [facility] MEDICINE [address] [place] [address] Ellen Espitia MD Medication Question 01/06/[address] [address] Andie Padilla LPN from Last 3 Months Immunizations Immunization Administration Dates Next Due Hep B, Adolescent [...] drink = 0.6 oz pur e alcohol) Depression Answer Date Recorded Patient Health Questionnaire-9 Score 12 12/25/2024 Patient Health Questionnaire-9 Score 12 12/25/2024 Last PHQ-9: Questionnaire Data Not on file 0 12/25/2024 Housing Stability Answer Date Recorded What is your housing situation today? I have jung zamorano 12/25/[address] you li ve. Do you have problems with any of the following? None of the above 12/25/2024 Food Insecurity Answer Date Recorded Within the past 12 months, y ou worried that your food would run out before you got money to buy more: Never True 12/25/2024 Within the past 12 months,th e food you bought just didn't last and you didn't have enough money to get more: Never True 04/2025 Transportation Answer Date Recorded In the past 12 months, has l ack of transportation kept you from medical appts, meetings, work or from getting things needed for daily living? No 12/25/2024 Utilities Answer Date Recorded In the past 12 months, has t he electric, gas, oil or water company threatened to shut off services in your home? No 12/25/2024 Depression Answer Date Recorded Patient Health Questionnaire-2 Score 4 12/25/2024 Internet Access Answer Date Recorded Internet Access Q1 No 12/25/2024 Internet Access Q2 I do not want or need it 12/15 Comments No Sex and Gender Information Value Date Recorded Sex Assigned at Female 04/16/2022 10:20 AM EDT Legal Sex Female 10:20 AM EDT Gender Identity Female 04/16/2022 10:20 AM EDT Sexual Orientation Straight 04/16/2022 10 :20 AM EDT Last Filed Vital Signs Vital Sign Reading Time Taken Comments Blood Pressure 140/80 03/22/2025 3:52 PM EDT Pulse 72 03/22/2025 3:52 PM EDT Temperature 37.1 C (98.8 F) 03/22/2025 3:52 PM EDT Respiratory Rate 20 03/22/2025 3:52 PM EDT Oxygen Saturation 98% 03/18/2025 9:34 AM EDT Inhaled Oxygen Concentration - - Weight 93.9 kg (207 lb) 03/22/2025 3:52 PM EDT Height 160 cm (5' 3 ) 03/18/2025 9:34 AM EDT Body Mass Index 36.67 03/18/2025 9:34 AM EDT Plan of Treatment Upcoming Encounters Date Type Department Care Team (Late st Contact Info) Description 04/16/2025 2:45 PM EDT Office Visit [facility] CHC MED & PEDS [address] [place] [address] Lberon Lozano MD [address] [place] [address] Health Maintenance Due Date Last Done Comments Lipid Panel 1989 Alcohol/Substance Use Screening 2001 Family Planning (PISQ) 2004 HPV Vaccines (1 - 3-dose series) 2004 Cervical Cancer Screening 10/25/2022 HPV/Cotest 10/25/2022 09/15/2021, 04/0 06/2021, 09/15/2021, Additional history exists Pap Smear 10/25/2022 09/15/2021, 08/03/2020 Depression Monitoring 06/27/2025 12/25/2024, 025 Influenza Vaccine (#1) 2025 03/01/2009 Postp oned from 02/15/2025 (Patient Refused) Disability Screening 12/23/2025 12/23/2024 SDOH Screening 12/25/2025 12/25/2024 COVID-19 Vaccine (3 - season) 2026 05/19/2021, 04/27/2021 Postponed from 02/15/2025 (Patient Refused) Tobacco Screening 03/22/2026 03/22/2025 DTaP/Tdap/Td Vaccines (3 - Td or Tdap) [...] Completed 08/22/2022 Hepatitis C Screening Completed 09/04/2022 Hepatitis A Vaccines Aged Out No long er eligible based on patient's age to complete this topic Meningococcal B Vaccine Aged Out No l onger eligible based on patient's age to complete this topic Meningococcal Vaccine Aged Out No pelon matt eligible based on patient's age to complete this topic Pneumococcal Vaccine: Pediatrics (0 to 5 Years) and At-Risk Patients (6 to 49) Years Aged Out No longer eligible based on patient's age to complete this topic RSV under 20 months Aged Out No longe r eligible based on patient's age to complete this topic Rotavirus Vaccines Aged Out No longer eligible based on patient's age to complete this topic Procedures Procedure Name Priority Date/Time Associated Diagnosis Comments AMB REFERRAL TO ORTHOPAEDIC SURGERY Urgent 01/20/2025 Bilateral carpal tunnel syndrome HEPATITIS PANEL, GENERAL Routine 09/04/2022 10:41 AM EDT Elevated liver function tests HIV 1/2 ANTIGEN/ANTIBODY, FOURTH GENERATION W/RFL Routine 08/22/2022 9:40 AM EST Oral thrush HM PAP/HPV Routine 09/15/2021 from Last 3 Months or Most Recently Relevant to Health Maintenance Results * Referral to Orthopaedic Surgery (01/20/2025) Ellen Espitia MD OUTPATIENT REFERRAL ORDERABLES F inal Result * (ABNORMAL) Hepatitis Panel, General (09/04/2022 10:41 AM EDT) Hepatitis A Antibody Total NON-REACT GATITO NON-REACT GATITO [employer] [place] [employer] Comment: For additional information, please refer to http://[employer] Proteins/faq/VNJ438 (This link is being provided for informational/ educational purposes only.) Hepatitis B Surface Antibody QL REACTIVE( A) NON-REACT GATITO [employer] [place] [employer] Hepatitis B Surface Ag NON-REACT GATITO NON-REACT GATITO [employer] [place] [employer] Hepatitis B Core Antibody Total NON-REACT GATITO NON-REACT GATITO [employer] [place] [employer] Hepatitis C Antibody NON-REACT GATITO NON-REACT GATITO [employer] Index 0.07 <1.00 [employer] Comment: HCV antibody was non-reactive. There is no laboratory evidence of HCV infection. In most cases, no further action is required. However, if recent HCV exposure is suspected, a test for HCV RNA (test code 87950) is suggested. For additional information please refer to http://[employer]/faq/MZQ21h7 (This link is being provided for informational/ educational purposes only.) 09/04/2022 10:4 1 AM EDT 09/04/2022 10:42 AM EDT Lebron Lozano MD LAB BLOOD ORDERABLES Final Result [facility] [address], [place] [address] [employer] [place] [employer] [address] [place] [address] * HIV-1/2 Antigen and Antibodies, Fourth Generation, with Reflexes (08/22/2022 9:40 AM EST) HIV Antigen/Antibody, 4th Generation NON-REAC TIVE NON-REAC TIVE [employer] [place] [employer] Comment: HIV-1 antigen and HIV-1/HIV-2 antibodies were not detected. There is no laboratory evidence of HIV infection. PLEASE NOTE: This information has been disclosed to you from records whose confidentiality may be protected by state law. If your state requires such protection, then the state law prohibits you from making any further disclosure of the information without the specific written consent of the person to whom it pertains, or as otherwise permitted by law. A general authorization for the release of medical or other information is NOT sufficient for this purpose. For additional information please refer to http://education.[employer]ty [employer]/faq/BYD792 (This link is being provided for informational/ educational purposes only.) The performance of this assay has not been clinically validated in patients less than 2 years old. Blood Venous blood specimen / Unknown 08/22/2022 9:40 AM EST 08/22/2022 9:41 AM EST Lebron Lozano MD LAB BLOOD ORDERABLES Final Result [facility] [address], [place] [address] [employer] [place] [employer] 200 [facility], (Nl[address]) [place] [address] * (ABNORMAL) Pap Smear (09/15/2021) Pap Epithelial cell abnormality(A ) Negative for intraephithelial lesion or malignancy, Other HPV Detected Historical Provider HEALTH MAINTENANCE Final Result from Last 3 Months or Most Recently Relevant to Health Maintenance Insurance [facility] C3 Care Teams French Folder Relationship Specialty Start Date End Date Lebron Lozano MD [address] [place] [id number] PCP - General Internal Medicine 03/22/25
--- OUTSIDE RECORDS SUMMARY | 2025-03-31 18:40 | XMS_ITS | Encounter Summary ---
Author Organization [employer] [facility] Address [address] [place] [address] [place] [address] Care Team Providers Care Track And Field Coach Name Role Phone Lebron Lozano MD Primary Care Provider [phone] Reason for Visit * Reason Onset Date Comments Error 07/05/2023 Encounter Details Date Type Department Care Team ([facility] Contact Info) Description 07/05/2023 Telephone [facility] MED & PEDS [address] [place] [address] Ellen Espitia MD [address] [place] [address] Error Social History Tobacco Use Types Packs/Day [...] Upcoming Encounters Date Type Department Care Team ([facility] Contact Info) Description 04/16/2025 2:45 PM EDT Office Visit [facility] CHC MED & PEDS [address] [place] [address] Lebron Lozano MD [address] [place], [place] [phone] documented as of this encounter Visit Diagnoses Not on filedocumented in this encounter Care Teams Track And Field Coach Relationship Specialty Start Date End Date Lebron Lozano MD [address] [place] [id number] PCP - General Internal Medicine 03/22/25 documented as of this encounter
--- OUTSIDE RECORDS SUMMARY | 2025-03-31 18:40 | XMS_ITS | Encounter Summary ---
Author Organization [employer] Address 75 [facility] 7t [place] [address] Care Team Providers Care Contract Clerk Automobile Name Role Phone Lebron Lozano MD Primary Care Provider [phone] Reason for Visit * Reason Onset Date Comments Reschedule 07/22/2023 Encounter Details Date Type Department Care Team ([facility] st Contact Info) Description 07/22/[address] [facility] MEDICINE [address] [place] [address] Ellen Espitia MD [address] [place] [address] Reschedule Social History Tobacco Use Types Packs/Day [...] Description 04/16/2025 2:45 PM EDT Office Visit [facility] MED & PEDS [address] [place] [address] Lebron Lozano MD [address] [place] [address] documented as of this encounter Visit Diagnoses Not on filedocumented in this encounter Care Teams Contract Clerk Automobile Relationship Specialty Start Date End Date Lebron Lozano MD [address] [place] [address] PCP - General Internal Medicine 03/22/25 documented as of this encounter
--- OUTSIDE RECORDS SUMMARY | 2025-03-31 18:40 | XMS_ITS | Encounter Summary ---
Author Organization [employer] Address [address] [place] [address] 7 [place] [address] Care Team Providers Care Electrician Helper Automotive Name Role Phone Lebron Lozano MD Primary Care Provider [phone] Encounter Details Date Type Department Care Team (Late Contact Info) Description 03/18/2023 Abstract [facility] MEDICINE [address] [place] [address] Ellen Espitia MD [address] [place], [place] [phone] Social History Tobacco Use Types Packs/Day Years [...] Department Care Team (Late Contact Info) Description 04/16/2025 2:45 PM EDT Office Visit [facility] CHC MED & PEDS [address] [place] [address] Lebron Lozano MD [address] [place] [address] documented as of this encounter Procedures Procedure Name Priority Date/Time Associated Diagnosis Comments BIOPSY CERVIX Routine 10/25/2021 PAP/HPV Routine 09/15/2021 BIOPSY CERVIX Routine 09/02/2020 HM PAP/HPV Routine 08/03/2020 documented in this encounter Results * Biopsy cervix (10/25/2021) [facility] Provider IN CLINIC/BEDSIDE ORDERAB LES Final Result * (ABNORMAL) Pap Smear (09/15/2021) Pap Epithelial cell abnormality(A ) Negative for intraephithelial lesion or malignancy, Other HPV Detected [facility] Provider HEALTH MAINTENANCE Final Result * Biopsy cervix (09/02/2020) [facility] Provider IN CLINIC/BEDSIDE ORDERAB LES Final Result * (ABNORMAL) Pap Smear (08/03/2020) Pap Epithelial cell abnormality(A ) Negative for intraephithelial lesion or malignancy, Other HPV Detected [facility] Provider HEALTH MAINTENANCE Final Result documented in this encounter Visit Diagnoses Not on filedocumented in this encounter Care Teams Electrician Helper Automotive Relationship Specialty Start Date End Date Lebron Lozano MD [address] [place] [id number] PCP - General Internal Medicine 03/22/25 documented as of this encounter
--- OUTSIDE RECORDS SUMMARY | 2025-03-31 18:40 | XMS_ITS | Encounter Summary ---
Author Organization [facility] [employer] Address [address] [place] [address] 7 [place] [address] Care Team Providers Care Revenue Cycle Manager Name Role Phone Lebron Lozano MD Primary Care Provider [phone] Reason for Referral * Imaging (Routine) - Closed Specialty Diagnoses / Procedures Referred By Contcorinna allen Referred To Contact Diagnoses Elevated liver function tests Procedures US Abdomen Limited Lebron Lozano MD [address] [place] [phone] Phone: tel: fax: Diagnostic [facility] [address] [place] [address] Phone: tel: fax: Referral ID Status Reason Start Date Expiration Date Visits Re quested Visits Authorized [id number] Closed 08/24/2022 02/20/2023 1 1 Encounter Details Date Type Department Care Team (Late st Contact Info) Description 08/24/2022 Orders Only [facility] PEDS [address] [place] [address] Lebron Lozano MD [address] [place] [phone] Elevated liver function tests (Primary Dx) Social [...] Upcoming Encounters Date Type Department Care Team ([facility] st Contact Info) Description 04/16/2025 2:45 PM EDT Office Visit [facility] [address] [place] [address] Lebron Lozano MD [address] [place], [place] [phone] Scheduled Orders Name Type Priority Associated Diagnoses [...] Hepatitis A Antibody Total NON-REACT GATITO NON-REACT [facility] [place] [facility] Comment: For additional information, please refer to http://education.[employer]/faq/RGX928 (This link is being provided for informational/ educational purposes only.) Hepatitis B Surface Antibody QL REACTIVE( A) NON-REACT [facility] [place] [facility] Hepatitis B Surface Ag NON-REACT GATITO NON-REACT [facility] [place] [facility] Hepatitis B Core Antibody Total NON-REACT GATITO NON-REACT [facility] [place] [facility] Hepatitis C Antibody NON-REACT GATITO NON-REACT [facility]IT[facility] Index 0.07 <1.00 [facility] Comment: HCV antibody was non-reactive. There is no laboratory evidence of HCV infection. In most cases, no further action is required. However, if recent HCV exposure is suspected, a test for HCV RNA (test code 25346) is suggested. For additional information please refer to http://education.[employer]/faq/AWP03r7 (This link is being provided for informational/ educational purposes only.) 09/04/2022 10:4 1 AM EDT 09/04/2022 10:42 AM EDT Lebron Lozano MD LAB BLOOD ORDERABLES Final Result [facility] [address], [place] [address] [facility] [place] [facility] [address] [place] [address] documented in this encounter Visit Diagnoses Diagnosis Elevated liver function tests- Primary Other abnormal blood chemistry documented in this encounter Care Teams Revenue Cycle Manager Relationship Specialty Start Date End Date Lebron Lozano MD [address] [place] [phone] PCP - General Internal Medicine 03/22/25 documented as of this encounter
== END 2025-03-31 14:59 | disposition home or self-care (01) ==
LOC: HO.NEURO 14:58
PROVIDERS: PCP Student in an Organized Health Care Education/Training Program; Visit Provider Orthopaedic Surgery
DX: R20.0 Anesthesia of skin (principal); R20.2 Paresthesia of skin
CPT/HCPCS: 95911

== ENCOUNTER → 2025-03-31 15:02 | Outpatient (BNV) | payer MEDICAID, SELFPAY | PROVIDERS: PCP Student in an Organized Health Care Education/Training Program; Visit Provider Physical Medicine & Rehabilitation | DX: R20.0 Anesthesia of skin (principal) | CPT/HCPCS: 95911 ==

== ENCOUNTER 2025-05-11 11:54 | Outpatient (REF) | payer MEDICAID, SELFPAY ==
--- OUTSIDE RECORDS SUMMARY | 2025-05-11 11:30 | XMS_ITS | Encounter Summary ---
Author Organization [employer] Address [address] [place] [address] [address]t [address] Floor [address] Care Team Providers Care Blunger Machine Operator Name Role Phone Lebron Lozano MD Primary Care Provider [phone] Reason for Referral * Imaging (Routine) - Authorized Specialty Diagnoses / Procedures Referred By Contac t Referred To Contact Cardiology Diagnoses Bilateral leg cramps Procedures Vascular US lower extremity venous duplex bilateral Mushtaq Barnett MD [address] [place], [place] Phone: tel: fax: [address] [phone] Phone: tel: fax: Referral ID Status Reason Start Date Expiration Date Visits Requested Visits Authorized [id number] Authorized Perform Procedure 05/11/2026 1 1 * Neurology (Routine) - Authorized Specialty Diagnoses / Procedures Referred By Contac t Referred To Contact Diagnoses Bilateral leg cramps Procedures Nerve conduction test Mushtaq Barnett MD [address] [place] [address] Phone: tel: fax: [address] [phone] Phone: tel: fax: Referral ID Status Reason Start Date Expiration Date V isits Requested Visits Authorized [id number] Authorized 05/11/2025 05/11/2026 1 1 * Neurology (Routine) - Authorized Specialty Diagnoses / Procedures Referred By Contac t Referred To Contact Diagnoses Bilateral leg cramps Procedures EMG Mushtaq Barnett MD [address] [place] [address] Phone: tel: fax: [facility] [address] [place] [phone] Phone: tel: fax: Referral ID Status Reason Start Date Expiration Date V isits Requested Visits Authorized [id number] Authorized 05/11/2025 05/11/2026 1 1 Reason for Visit * Reason Comments Sick onsite Encounter Details Date Type Department Care Team (Late st Contact Info) Description 05/11/2025 11:30 AM EST Office Visit [facility] MED[facility]INE [address] [place], [place] [phone] Mushtaq Barnett MD [address] [place], [place] [phone] Bilateral leg cramps (Primary Dx) Social History Tobacco Use Types [...] Sign Reading Time Taken Comments Blood Pressure 140/88 05/11/2025 11:28 AM EST Pulse 80 05/11/2025 11:28 AM EST Temperature 36.2 C (97.1 F) 05/11/2025 11:28 AM EST Respiratory Rate 18 05/11/2025 11:28 AM EST Oxygen Saturation - - Inhaled Oxygen Concentration - - Weight 93.3 kg (205 lb 9.6 oz) 05/11/2025 11:28 AM EST Height 160 cm (5' 3 ) 05/11/2025 11:28 AM EST Body Mass Index 36.42 05/11/2025 11:28 AM EST documented in this encounter Functional Status * Over the last 2 weeks, how often have you been bothered by any of the following problems? Question Answer Date of Assessment Author Feeling nervous, anxious, or on edge 2 05/11/2025 11:54 AM EST Jacqueline Dawson [place] Not being able to stop or co ntrol worrying 1 05/11/2025 11:54 AM Jacqueline French [place] Worrying too much about diff erent things 2 05/11/2025 11:54 AM Jacqueline French [place] Trouble relaxing 3 05/11/2025 11:54 AM Jacqueline French [place] Being so restless that it is hard to sit still 1 05/11/2025 11:54 AM Jacqueline French MA Becoming easily annoyed or irritable 1 05/11/2025 11:54 AM Jacqueline French MA Feeling afraid as if somethi ng awful might happen 2 05/11/2025 11:54 AM Jacqueline French MA AJ-7 Total Score 12 05/11/2025 11:54 AM Jacqueline French [place] documented as of this encounter Progress Notes * Mushtaq Henderson MD - 05/11/2025 11:30 AM EST SUBJECTIVE Myra Manzanares is a 34 y.o. female who presents for Sick onsite . 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 - Persistent tightness in both calves for a few months, described as feeling like a charley horse is about to occur - Swelling of legs and ankles, occurs after getting up from a resting position - Constant pain and discomfort from knees to ankles - Occasional knee instability, especially when getting up quickly or going down stairs - History of plantar fasciitis in the feet, currently improved - No recent numbness or tingling in legs or feet - Reports taking medication for inflammation Back Pain - Intermittent back pain, not chronic - History of disc degeneration Sepsis and Kidney Infection - Hospitalized for sepsis due to kidney infection last year - Reports overall decline in health since that event Foot Tendon Issue - Previously informed of a curved tendon in the foot HPI Review of Systems Constitutional: Negative for fever. HENT: Negative for sore throat. Respiratory: Negative for cough and shortness of breath. Cardiovascular: Negative for chest pain. Gastrointestinal: Negative for abdominal pain. Neurological: Negative for headaches. Allergies[1] OBJECTIVE Vitals: 05/11/25 1128 BP: (!) 140/88 BP Location: Left arm Patient Position: Sitting BP Cuff Size: Adult Pulse: 80 Resp: 18 Temp: 97.1 ??F (36.2 ??C) TempSrc: Oral Weight: 205 lb 9.6 oz (93.3 kg) Height: 5' 3 (1.6 m) Physical Exam Vitals reviewed. Constitutional: Appearance: Normal appearance. HENT: Head: Normocephalic and atraumatic. Right Ear: External ear normal. Left Ear: External ear normal. Nose: Nose normal. Mouth/Throat: Mouth: Mucous membranes are moist. Eyes: Conjunctiva/sclera: Conjunctivae normal. Cardiovascular: Rate and Rhythm: Normal rate and regular rhythm. Pulmonary: Effort: Pulmonary effort is normal. Breath sounds: Normal breath sounds. Musculoskeletal: Right lower leg: Normal. No swelling. No edema. Left lower leg: Normal. No swelling. No edema. Right ankle: Normal. Left ankle: Normal. Right foot: Normal. Left foot: Normal. Skin: General: Skin is warm. Neurological: Mental Status: She is alert. Mental status is at baseline. Motor: Motor function is intact. Gait: Gait is intact. Deep Tendon Reflexes: Reflexes are normal and symmetric. Babinski sign absent on the right side. Babinski sign absent on the left side. Assessment/Plan Problem List Items Addressed This Visit Bilateral leg cramps - Primary Pt of Dr Lozano here with c/o bilateral leg discomfort. Leg cramps and tightness Exam unremarkable, although she has mild tenderness on small area of her calves - Ordered basic blood work to evaluate for electrolyte abnormalities and muscle inflammation. Recommended ultrasound of lower extremities to assess venous circulation. - Peripheral neuropathy considered as a differential diagnosis due to intermittent cramping and pain - Ordered nerve conduction study to evaluate for peripheral neuropathy. Pt already scheduled to see Dr. Guillen 05/28/2025 I instructed her to come back if symptoms do not improve or worsen Relevant Orders TSH with Reflex to Free T4 EMG Nerve conduction test Creatine Kinase, Total Comprehensive Metabolic Panel CBC auto differential Vascular US lower extremity venous duplex bilateral This note was drafted using Ambient (AI) technology. The patient/patient's guardian has been informed and has consented to the use of this technology: Yes Future Appointments Date Time Provider Department Center 05/28/2025 4:00 PM Lebron Lozano MD [facility] [1] No Known Allergies documented in this encounter Miscellaneous Notes * Assessment & Plan Note - Mushtaq Henderson MD - 05/11/2025 11:59 AM EST Associated Problem(s): Bilateral leg cramps Pt of Dr Lozano here with c/o bilateral leg discomfort. Leg cramps and tightness Exam unremarkable, although she has mild tenderness on small area of her calves - Ordered basic blood work to evaluate for electrolyte abnormalities and muscle inflammation. Recommended ultrasound of lower extremities to assess venous circulation. - Peripheral neuropathy considered as a differential diagnosis due to intermittent cramping and pain - Ordered nerve conduction study to evaluate for peripheral neuropathy. Pt already scheduled to see Dr. Guillen 05/28/2025 I instructed her to come back if symptoms do not improve or worsen documented in this encounter Plan of Treatment Upcoming Encounters Date Type Department Care Team (Late st Contact Info) Description 05/28/2025 4:00 PM EST Office Visit [facility] MED & PEDS [address] [place] [address] Lebron Lozano MD [address] [place] [address] Scheduled Orders Name Type Priority Associated Diagnoses Orde r Schedule EMG Neurology Routine Bilateral leg cramps Ordered: 05/11/2025 Nerve conduction test Neurology Routine Bilateral leg cramps Ordered: 05/11/2025 documented as of this encounter Procedures Procedure Name Priority Date/Time Associated Diagnosis Comments TSH W/REFLEX TO FT4 Routine 05/11/2025 1 2:05 PM EST Bilateral leg cramps CBC WITH AUTO DIFFERENTIAL Routine 05/11/2025 12:05 PM EST Bilateral leg cramps CREATINE KINASE, TOTAL Routine 12:05 PM EST Bilateral leg cramps COMPREHENSIVE METABOLIC PANEL Routine 05/11/2025 12:05 PM EST Bilateral leg cramps documented in this encounter Results * (ABNORMAL) CBC auto differential (05/11/2025 12:05 PM EST) White Blood Count 12.3(H) 4.8 - 10.8 X10*3/uL [facility] Red Blood Count 5.34 4.20 - 5.50 X10*6/uL [facility] Hemoglobin 16.2(H) 12.0 - 16.0 g/dl [facility] Hematocrit 47.0 37.0 - 47.0 % [facility] Mean Corpuscular Volume 88.0 80.0 - 98.0 fL [facility] Mean Corpuscular Hemoglobin 30.3 27.0 - 33.0 pg [facility] Mean Corpuscular HGB Conc 34.5 31.0 - 35.0 g/dl [facility] Red Cell Distribution Width 13.0 11.0 - 16.0 % [facility] Platelet Count 368 160 - 400 X10*3/uL [facility] Mean Platelet Volume 11.0 9.4 - 12.3 fL [facility] Neutrophils Percent Auto 64.2 45 - 73 % [facility] Imm Gran Pct Auto 0.4 0.0 - 0.4 % [facility] Lymphocytes Percent Auto 23.5 20 - 40 % [facility] Monocytes Percent Auto 9.8 2 - 11 % [facility] Eosinophils Percent Auto 1.5 0 - 4 % [facility] Basophils Percent Auto 0.6 0 - 2 % [facility] NRBC Pct Auto 0.0 0.0 - 0.2 /100WBC [facility] Neutrophils Absolute Auto 7.9 2.0 - 8.3 x10*3/uL [facility] Imm Gran Abs Auto 0.05(H) 0.00 - 0.03 X10*3/uL [facility] Lymphocytes Absolute Auto 2.9 1.2 - 4.9 X10*3/uL [facility] Monocytes Absolute Auto 1.2 0.1 - 1.2 X10*3/uL [facility] Eosinophils Absolute Auto 0.2 0.0 - 0.4 X10*3/uL [facility] Basophils Absolute Auto 0.1 0.0 - 0.2 X10*3/uL [facility] NRBC Abs Auto 0.000 0.0 - 0.012 X10*3/uL [facility] Blood Venous blood specimen / Unknown 05/11/2025 12:05 PM EST 05/11/2025 1:18 PM EST us Mushtaq Henderson MD LAB BLOOD ORDERABLES Final Result [facility] [address] [place] [phone] * (ABNORMAL) Comprehensive Metabolic Panel (05/11/2025 12:05 PM EST) Sodium 141 135 - 145 mmol/L [facility] Potassium 4.3 3.3 - 5.1 mmol/L [facility] Chloride 104 96 - 108 mmol/L [facility] Carbon Dioxide 29 22 - 29 mmol/L [facility] Anion Gap 12 12 - 20 [facility] Urea Nitrogen (BUN) 9 9 - 16 mg/dL [facility] Creatinine, Serum 0.61 0.5 - 1.4 mg/dL [facility] Estimated Glomerular Filt Rate >60 [facility] Comment:Chronic Kidney Disea se: Estimated GFR < 60 mL/min/1.75g1Ocpchy Kidney Disease: Estimated GFR < 15 mL/min/1.73m2 Glucose 89 60 - 115 mg/dL [facility] Calcium 10.1 8.4 - 10.2 mg/dL [facility] Bilirubin, Total 0.5 0.0 - 1.0 mg/dL [facility] Aspartate Amino Transferase 46(H) 5 - 31 U/L [facility] Alanine Aminotransferase 84(H) 0 - 31 U/L [facility] Total Protein 8.0 6.5 - 8.0 g/dL [facility] Albumin Level 5.1(H) 3.5 - 5.0 g/dL [facility] Alkaline Phosphatase 90 39 - 117 U/L [facility] Blood Venous blood specimen / Unknown 05/11/2025 12:05 PM EST 05/11/2025 1:21 PM EST Mushtaq Henderson MD LAB BLOOD ORDERABLES Final Result Performing Organization Address City/[facility]/ZIP Co de Phone Number [facility] [address] [place] [phone] * Creatine Kinase, Total (05/11/2025 12:05 PM EST) Creatine Kinase Total 78 26 - 140 U/L [facility] Blood Venous blood specimen / Unknown 05/11/2025 12:05 PM EST 05/11/2025 1:21 PM EST Mushtaq Henderson MD LAB BLOOD ORDERABLES Final Result Performing Organization Address [facility] Co de Phone Number [facility] [address] [place] [phone] * TSH with Reflex to Free T4 (05/11/2025 12:05 PM EST) TSH reflex Free T4 1.84 0.32 - 4.0 uIU/mL [facility] Blood Venous blood specimen / Unknown 05/11/2025 12:05 PM EST 05/11/2025 1:21 PM EST us Mushtaq Henderson MD LAB BLOOD ORDERABLES Final Result Performing Organization Address City/[facility]/ZIP Co de Phone Number [facility] [address] [place] [phone] documented in this encounter Visit Diagnoses Diagnosis Bilateral leg cramps- Primary documented in this encounter Additional Health Concerns Assessment Noted Time PHQ-9 Depression Total Score: 12 025 12:05 PM EDT documented as of this encounter Care Teams Blunger Machine Operator Relationship Specialty Start Date End Date Lebron Lozano MD [address] [place] [address] PCP - General Internal Medicine 03/22/25 documented as of this encounter
[2025-05-11 13:23] LABS: MANUAL DIFF FLAG NO
[2025-05-11 13:36] LABS: Hematocrit 46.9 % (37.0-47.0); Hemoglobin 16.2 g/dl (12.0-16.0); Imm Gran Abs Auto 0.04 X10*3/uL (0.00-0.03); Imm Gran Pct Auto 0.3 % (0.0-0.4); Lymphocytes Absolute Auto 2.9 X10*3/uL (1.2-4.9); Mean Corpuscular HGB Conc 34.5 g/dl (31.0-35.0); Mean Corpuscular Hemoglobin 30.2 pg (27.0-33.0); Mean Corpuscular Volume 87.5 fL (80.0-98.0); NRBC Abs Auto 0.000 X10*3/uL (0.0-0.012); NRBC Pct Auto 0.0 /100WBC (0.0-0.2); Platelet Count 374 X10*3/uL (160-400); Red Blood Count 5.36 X10*6/uL (4.20-5.50); White Blood Count 12.2 X10*3/uL (4.8-10.8)
[2025-05-11 13:38] LABS: Hematocrit 47.0 % (37.0-47.0); Hemoglobin 16.2 g/dl (12.0-16.0); Imm Gran Abs Auto 0.05 X10*3/uL (0.00-0.03); Imm Gran Pct Auto 0.4 % (0.0-0.4); Lymphocytes Absolute Auto 2.9 X10*3/uL (1.2-4.9); Mean Corpuscular HGB Conc 34.5 g/dl (31.0-35.0); Mean Corpuscular Hemoglobin 30.3 pg (27.0-33.0); Mean Corpuscular Volume 88.0 fL (80.0-98.0); NRBC Abs Auto 0.000 X10*3/uL (0.0-0.012); NRBC Pct Auto 0.0 /100WBC (0.0-0.2); Platelet Count 368 X10*3/uL (160-400); Red Blood Count 5.34 X10*6/uL (4.20-5.50); White Blood Count 12.3 X10*3/uL (4.8-10.8)
[2025-05-11 13:59] LABS: Alanine Aminotransferase 84 U/L (0-31); Albumin Level 5.1 g/dL (3.5-5.0); Alkaline Phosphatase 90 U/L (39-117); Anion Gap 12 (12-20); Aspartate Amino Transferase 46 U/L (5-31); Blood Urea Nitrogen 9 mg/dL (9-16); Calcium 10.1 mg/dL (8.4-10.2); Carbon Dioxide 29 mmol/L (22-29); Chloride 104 mmol/L (96-108); Estimated Glomerular Filt Rate > 60; Potassium 4.3 mmol/L (3.3-5.1); Sodium 141 mmol/L (135-145); Total Protein 8.0 g/dL (6.5-8.0)
[2025-05-11 14:04] LABS: Alanine Aminotransferase 85 U/L (0-31); Albumin Level 5.1 g/dL (3.5-5.0); Alkaline Phosphatase 87 U/L (39-117); Anion Gap 12 (12-20); Aspartate Amino Transferase 47 U/L (5-31); Blood Urea Nitrogen 9 mg/dL (9-16); Calcium 10.2 mg/dL (8.4-10.2); Carbon Dioxide 29 mmol/L (22-29); Chloride 104 mmol/L (96-108); Cholesterol 245 mg/dL (<200); Estimated Glomerular Filt Rate > 60; HDL Cholesterol 43 mg/dL (>40); Potassium 4.4 mmol/L (3.3-5.1); Sodium 141 mmol/L (135-145); Total Protein 8.0 g/dL (6.5-8.0); Triglycerides 179 mg/dL (<150)
--- OUTSIDE RECORDS SUMMARY | 2025-05-11 15:41 | XMS_ITS | Encounter Summary ---
Author Organization [employer] Address [address] [facility] [address] [place] [address] Care Team Providers Care Compensator Name Role Phone Lebron Lozano MD Primary Care Provider [phone] Reason for Referral * Imaging (Routine) - Pending Review Specialty Diagnoses / Procedures Referred By Contcorinna t Referred To Contact Radiology Diagnoses Transaminitis Procedures US Abdomen Complete Mushtaq Barnett MD [address] [place] [phone] Phone: tel: fax: Referral ID Status Reason Start Date Expiration Date V isits Requested Visits Authorized [id number] Pending Review 05/11/2025 05/11/2026 1 1 Reason for Visit * Reason Onset Date Comments Results 05/11/2025 Encounter Details Date Type Department Care Team (Latest Contact Info) Description 05/11/2025 Results Follow-Up [facility] [address] [place] [phone] Mushtaq Barnett MD [address] [place] [phone] TSH with Reflex to Free T4, Comprehensive Metabolic Panel, Creatine Kinase, Total, CBC auto differential Social History Tobacco Use Types Packs/Day Years [...] AM EDT documented as of this encounter Functional Status * Over the last 2 weeks, how often have you been bothered by any of the following problems? Question Answer Date of Assessment Author Feeling nervous, anxious, or on edge 2 05/11/2025 11:54 AM Jacqueline French MA Not being able to stop or [...] French [place] documented as of this encounter Miscellaneous Notes * Telephone Encounter - Roberta Sosa RN - 05/11/2025 3:22 PM EST TC placed to the pt to inform of the blood work result below indicating mild elevation of LFTs. Pt was advised that PCP placed an order for a Hepatitis Panel to investigate further and pt was agreeable to having this done. The pt was secondly informed of liver US ordered to rule out fatty liver vs viral hepatitis. The pt was advised that they will be contacted to schedule and while on the phone the pt noted the low vit D levels noted in today's labs. The pt was requesting supplementation be sent to the pharmacy for this. Pt advised that this request will be sent to PCP ----- Message from Mushtaq Henderson MD sent at 05/11/2025 3:10 PM EST ----- Please let patient know her labs showed mild elevation of her Liver function testing. I have placedan order for Hepatitis Panel ( please contact lab and see if it can just be added , if they have enough blood, if not please ask patient to have it drawn) and US liver to rule out fatty liver VS. Viral hepatitis. In the meantime ask patient to not use Acetaminophen or drink alcohol ----- Message ----- From: Interface, Lab Results In Sent: 05/11/2025 1:39 PM EST To: Mushtaq Henderson MD * Result Encounter Note - Mushtaq Henderson MD - 05/11/2025 3:10 PM EST Please let patient know her labs showed mild elevation of her Liver function testing. I have placedan order for Hepatitis Panel ( please contact lab and see if it can just be added , if they have enough blood, if not please ask patient to have it drawn) and US liver to rule out fatty liver VS. Viral hepatitis. In the meantime ask patient to not use Acetaminophen or drink alcohol documented in this encounter Plan of Treatment Upcoming Encounters Date Type Department Care Team ([facility] st Contact Info) Description 05/28/2025 4:00 PM EST Office Visit [facility] MED & PEDS [address] [place] [address] Lebron Lozano MD [address] [place] [address] Scheduled Orders Name Type Priority Associated Diagnoses Orde r Schedule US Abdomen Complete Imaging Routine Transaminitis Ordered: 05/11/2025 Hepatitis B Core Antibody, Total Lab Routine Transaminitis Expected: 05/11/2025 (Approximate), Expires: 05/11/2026 Hepatitis B Surface Antibody, Qualitative Lab Routine Transaminitis Expected: 05/11/2025 (Approximate), Expires: 05/11/2026 Hepatitis B surface antigen, EIA Lab Routine Transaminitis Expected: 05/11/2025 (Approximate), Expires: 05/11/2026 Hepatitis C Antibody with Reflex to HCV, RNA, Quantitative, Real-Time PCR Lab Routine Transaminitis Expected: 05/11/2025 (Approximate), Expires: 05/11/2026 documented as of this encounter Visit Diagnoses Diagnosis Transaminitis- Primary Nonspecific elevation of levels of transaminase or lactic acid dehydrogenase (LDH) documented in this encounter Additional Health Concerns Assessment Noted Time PHQ-9 Depression Total Score: 12 025 12:05 PM EDT documented as of this encounter Care Teams Compensator Relationship Specialty Start Date End Date Lebron Lozano MD [address] [place] [phone] PCP - General Internal Medicine 03/22/25 documented as of this encounter
--- OUTSIDE RECORDS SUMMARY | 2025-05-11 15:41 | XMS_ITS | Clinical Summary ---
Author Organization [employer] Address [address] [facility] 7t [place] [address] Care Team Providers Care Tools Programmer Name Role Phone Lebron Lozano MD Primary Care Provider Allergies No known active allergies Medications * This document contains information received from the source organization and may not represent a complete record from that organization. Elastic Bandages & Supports (Wrist Splint) misc [...] TABLET BY MOUTH EVERY MORNING 3 Active witch rasheed-glycerin (Tucks) pad Apply topically if needed for irritation. 100 each 3 4 Active ibuprofen 800 MG tablet TAKE 1 TABLET BY MOUTH EVERY 8 HOURS WITH FOOD NEEDED 5 Active ergocalciferol (Vitamin D2) 1.25 MG (91723 UT) capsule Take 1 capsule (1.25 mg) by mouth 1 (one) time per week. 15 capsule 5 Active Diclofenac Sodium (Voltaren) 1 % gel Use topical BID 100 g 3 5 Active celecoxib (CeleBREX) 50 MG capsule Take 1 capsule (50 mg) by mouth 2 times daily. 60 capsule 11 5 03/18/20 26 Active Tirzepatide-Chaka ght Management (Zepbound) 2.5 MG/0.5ML solution auto-injectorIn dications:Class 2 obesity without serious comorbidity with body mass index (BMI) of 36.0 to 36.9 in adult, unspecified obesity type Inject 0.5 mL (2.5 mg) under the skin 1 (one) time per week. 2 mL 1 5 Active minoxidil (Rogaine) 2 % external solution Apply topically 2 times daily. 60 mL 2 4 04/16/20 25 Discontinu ed(Therapy completed) Active Problems Problem Noted Date Diagnosed Date Bilateral leg cramps 05/11/2025 Assessment & Plan (05/11/2025 12:00 PM EST): Pt of Dr Lozano here with c/o [...] if symptoms do not improve or worsen ASCUS (atypical squamous kalyan ls of undetermined [...] then 10 days can consider antibiotics. Encounters Date Type Department Care Team Description 05/11/2025 11:30 AM EST Office Visit [address] [address] Mushtaq Barnett MD Bilateral leg cramps (Primary Dx) 05/11/2025 Results Follow-Up [address] [address] Mushtaq Barnett MD TSH with Reflex to Free T4, Comprehensive Metabolic Panel, Creatine Kinase, Total, CBC auto differential 05/11/2025 Travel 05/10/[address] [address] Lebron Lozano MD Apointment change 05/06/[address] [address] Gage Moon NP Chart Prep 05/05/[address] [address] Lebron Lozano MD Nurse Triage 04/20/[address] [address] Lebron Lozano MD Prior Authorization 04/16/2025 2:45 PM EDT Office Visit [facility] [address] [place] [address] Lebron Lozano MD Vitamin D deficiency (Primary Dx); Kidney stones; Ureteropelvic junction calculus; Class 2 obesity without serious comorbidity with body mass index (BMI) of 36.0 to 36.9 in adult, unspecified obesity type; Bilateral carpal tunnel syndrome 04/16/2025 Travel 04/15/2025 Telephone [facility] [address] [place] [address] Lebron Lozano MD Chart Prep 04/09/2025 Patient Outreach [address] [address] Lebron Lozano MD Pre-visit Planning (SDOH screening completed on 12/25/24 ) 03/22/2025 3:40 PM EDT Office Visit [facility] [address] [place] [address] Christelle Alas MD Abscess (Primary Dx); Right calf pain; Bilateral foot pain 03/22/2025 Travel 03/22/2025 Telephone [facility] [address] [place] [address] Lebron Lozano MD Medication Question 03/22/2025 Telephone [facility] [address] [place] [address] Ellen Espitia MD Nurse Triage 03/18/2025 9:30 AM EDT Office Visit [facility] [address] [place] [address] Ellen Espitia MD Chronic bilateral low back pain without sciatica (Primary Dx); Vitamin D deficiency; Bleeding hemorrhoids 03/18/2025 Travel 03/12/[address] [address] Ellen Espitia MD Appointment 03/02/2025 Telephone [facility] [address] [place] [address] Ellen Espitia MD Chart Prep 02/11/2025 Telephone [facility] [address] [place] [address] Ellen Espitia MD Medication Question from Last 3 Months Immunizations Immunization Administration [...] 18 05/11/2025 11:28 AM EST Oxygen Saturation 98% 03/18/2025 9:34 AM EDT Inhaled Oxygen Concentration - - Weight 93.3 kg (205 lb 9.6 oz) 05/11/2025 11:28 AM EST Height 160 cm (5' 3 ) 05/11/2025 11:28 AM EST Body Mass Index 36.42 05/11/2025 11:28 AM EST Plan of Treatment Upcoming Encounters Date Type Department Care Team ([facility] st Contact Info) Description 05/28/2025 4:00 PM EST Office Visit [facility] [address] [place] [address] Lebron Lozano MD [address] [place] [address] Health Maintenance Due Date Last Done Comments Family Planning (PISQ) 2004 HPV Vaccines (1 - 3-dose series) 2004 Cervical Cancer Screening 10/25/2022 HPV/Cotest 10/25/2022 09/15/2021, 04/0 06/2021, 09/15/2021, Additional history exists Pap Smear 10/25/2022 09/15/2021, 08/03/2020 Depression Monitoring 06/27/2025 12/25/2024, 025 Influenza Vaccine (#1) 2025 03/01/2009 Postp oned from 02/15/2025 (Patient Refused) SDOH Screening 12/25/2025 12/25/2024 COVID-19 Vaccine (3 - season) 2026 05/19/2021, 04/27/2021 Postponed from 02/15/2025 (Patient Refused) Alcohol/Substance Use Screening 05/11/2026 05/11/2025 Disability Screening 05/11/2026 05/11/2025 Tobacco Screening 05/11/2026 05/11/2025 DTaP/Tdap/Td Vaccines (3 - Td or Tdap) 08/12/2028 08/12/2018, 12/25/2002, 1993, Additional history exists Lipid Panel 05/11/2030 05/11/2025 Zoster Vaccines (1 of 2) 12/20/2039 RSV [...] Procedure Name Priority Date/Time Associated Diagnosis Comments CBC WITH AUTO DIFFERENTIAL Routine 05/11/2025 12:05 PM EST Bilateral leg cramps CREATINE KINASE, TOTAL Routine 12:05 PM EST Bilateral leg cramps COMPREHENSIVE METABOLIC PANEL Routine 05/11/2025 12:05 PM EST Bilateral leg cramps TSH W/REFLEX TO FT4 Routine 05/11/2025 1 2:05 PM EST Bilateral leg cramps TSH W/REFLEX TO FT4 Routine 05/11/2025 1 2:05 PM EST Vitamin D deficiency Kidney stones Ureteropelvic junction calculus LIPID PANEL, STANDARD Routine 05/11/2025 12:05 PM EST Vitamin D deficiency Kidney stones Ureteropelvic junction calculus COMPREHENSIVE METABOLIC PANEL Routine 05/11/2025 12:05 PM EST Vitamin D deficiency Kidney stones Ureteropelvic junction calculus CBC WITH AUTO DIFFERENTIAL Routine 05/11/2025 12:05 PM EST Vitamin D deficiency Kidney stones Ureteropelvic junction calculus VITAMIN D,25-OH,TOTAL,IA Routine 05/11/2025 12:05 PM EST Vitamin D deficiency HEPATITIS PANEL, GENERAL Routine 09/04/2022 10:41 AM EDT Elevated liver function tests HIV 1/2 ANTIGEN/ANTIBODY, FOURTH GENERATION W/RFL Routine 08/22/2022 9:40 AM EST Oral thrush HM PAP/HPV Routine 09/15/2021 from Last 3 Months or Most Recently Relevant to Health Maintenance Results * (ABNORMAL) Vitamin D, 25-Hydroxy, Total, Immunoassay (05/11/2025 12:05 PM EST) Vitamin D 25-OH Total 19.3(L) >30 ng/mL [facility] Comment: Health Based Reference Values*< 20 ng/mL Vyfgeagcf47-55 ng/mL Insufficient> 30 ng/mL Sufficient*Leesa GILES. N Engl J Med. 2007;357:266-280There is no well-established upper level of normal vitamin Dlevels. Some laboratories use 50 ng/mL as an upper limit ofnormal. However, toxicity is patient-dependent and may occurat any level. Careful correlation with the patient'spresentation is necessary and, if there is concern forvitamin D toxicity, treatment should be consideredirrespective of the serum level.Care must be taken in interpreting Vitamin D results fromdifferent laboratories and methodologies. Published datademonstrated that results from patients undergoinghemodialysis may show a negative bias when tested withvarious automated 25-OH vitamin D assays when compared toLC-MS/MS.When testing samples from patients whose predominant form ofVitamin D is Vitamin D2, such as patients receiving VitaminD2 supplementation, results that are subtherapeutic shouldbe confirmed with another method such as LC-MS/MS. Blood Venous blood specimen / Unknown 05/11/2025 12:05 PM EST 05/11/2025 1:21 PM EST us Lebron Lozano MD LAB BLOOD ORDERABLES Final Result Performing Organization Address [facility]/ZIP Co de Phone Number [facility] [address] [place] [phone] * TSH with Reflex to Free T4 (05/11/2025 12:05 PM EST) Only the most recent of2 resultswithin the time period is included. TSH reflex Free T4 1.84 0.32 - 4.0 uIU/mL [facility] Blood Venous blood specimen / Unknown 05/11/2025 12:05 PM EST 05/11/2025 1:21 PM EST us Mushtaq Henderson MD LAB BLOOD ORDERABLES Final Result Performing Organization Address [facility]/ZIP Co de Phone Number [facility] [address] [place] [phone] * (ABNORMAL) CBC auto differential (05/11/2025 12:05 PM EST) Only the most recent of2 resultswithin the time period is included. White Blood Count 12.3(H) 4.8 - 10.8 X10*3/uL [facility] Red Blood Count 5.34 4.20 - 5.50 X10*6/uL [facility] Hemoglobin 16.2(H) 12.0 - 16.0 g/dl [facility] Hematocrit 47.0 37.0 - 47.0 % [facility] Mean Corpuscular Volume 88.0 80.0 - 98.0 fL [facility] Mean Corpuscular Hemoglobin 30.3 27.0 - 33.0 pg [facility] Mean Corpuscular HGB Conc 34.5 31.0 - 35.0 g/dl [facility] Red Cell Distribution Width 13.0 11.0 - 16.0 % [facility] Platelet Count 368 160 - 400 X10*3/uL [facility] Mean Platelet Volume 11.0 9.4 - 12.3 fL [facility] Neutrophils Percent Auto 64.2 45 - 73 % [facility] Imm Gran Pct Auto 0.4 0.0 - 0.4 % [facility] Lymphocytes Percent Auto 23.5 20 - 40 % [facility] Monocytes Percent Auto 9.8 2 - 11 % [facility] Eosinophils Percent Auto 1.5 0 - 4 % [facility] Basophils Percent Auto 0.6 0 - 2 % [facility] NRBC Pct Auto 0.0 0.0 - 0.2 /100WBC [facility] Neutrophils Absolute Auto 7.9 2.0 - 8.3 x10*3/uL [facility] Imm Gran Abs Auto 0.05(H) 0.00 - 0.03 X10*3/uL [facility] Lymphocytes Absolute Auto 2.9 1.2 - 4.9 X10*3/uL [facility] Monocytes Absolute Auto 1.2 0.1 - 1.2 X10*3/uL [facility] Eosinophils Absolute Auto 0.2 0.0 - 0.4 X10*3/uL [facility] Basophils Absolute Auto 0.1 0.0 - 0.2 X10*3/uL [facility] NRBC Abs Auto 0.000 0.0 - 0.012 X10*3/uL [facility] Blood Venous blood specimen / Unknown 05/11/2025 12:05 PM EST 05/11/2025 1:18 PM EST Mushtaq Henderson MD LAB BLOOD ORDERABLES Final Result [facility] [address] [place] [phone] * Creatine Kinase, Total (05/11/2025 12:05 PM EST) Pathologist [facility] Creatine Kinase Total 78 26 - 140 U/L [facility] Blood Venous blood specimen / Unknown 05/11/2025 12:05 PM EST 05/11/2025 1:21 PM EST Mushtaq Henderson MD LAB BLOOD ORDERABLES Final Result [facility] [address] [place] [phone] * (ABNORMAL) Lipid Panel, Standard (05/11/2025 12:05 PM EST) Triglycerides 179(H) <150 mg/dL [facility] Comment:Desirable Triglyceri de: less than 150 mg/dLBorderline High Triglyceride 150-199 mg/dLHigh Triglyceride: 200-499 mg/dLVery High Triglyceride: greater than or equal to 5OO mg/dL Cholesterol 245(H) <200 mg/dL [facility] Comment:Desirable Cholestero l: less than 200 mg/dLBorderline High Cholesterol: 200-239 mg/dLHigh Cholesterol: greater than 239 mg/dL LDL Cholesterol Calculated 167(H) <100 mg/dL [facility] Comment:Desirable LDL: less than 100 mg/dLNear Optimal/Above Optimal LDL: 110- 129 mg/dLBorderline High LDL: 130-159 mg/dLHigh LDL: 160-189 mg/dLVery High LDL: greater than or equal to 190 mg/dL HDL Cholesterol 43 >40 mg/dL [facility] Comment:Desirable HDL: great er than 40 mg/dL Note: This HDL assay may give artificially low results in patients with liver disease. Blood Venous blood specimen / Unknown 05/11/2025 12:05 PM EST 05/11/2025 1:21 PM EST us Lebron Lozano MD LAB BLOOD ORDERABLES Final Result [facility] [address] [place] [address] [phone] * (ABNORMAL) Comprehensive Metabolic Panel (05/11/2025 12:05 PM EST) Only the most recent of2 resultswithin the time period is included. Sodium 141 135 - 145 mmol/L [facility] Potassium 4.3 3.3 - 5.1 mmol/L [facility] Chloride 104 96 - 108 mmol/L [facility] Carbon Dioxide 29 22 - 29 mmol/L [facility] Anion Gap 12 12 - 20 [facility] Urea Nitrogen (BUN) 9 9 - 16 mg/dL [facility] Creatinine, Serum 0.61 0.5 - 1.4 mg/dL [facility] Estimated Glomerular Filt Rate >60 [facility] Comment:Chronic Kidney Disea se: Estimated GFR < 60 mL/min/1.71w1Guhove Kidney Disease: Estimated GFR < 15 mL/min/1.73m2 Glucose 89 60 - 115 mg/dL [facility] Calcium 10.1 8.4 - 10.2 mg/dL [facility] Bilirubin, Total 0.5 0.0 - 1.0 mg/dL [facility] Aspartate Amino Transferase 46(H) 5 - 31 U/L [facility] Alanine Aminotransferase 84(H) 0 - 31 U/L [facility] Total Protein 8.0 6.5 - 8.0 g/dL [facility] Albumin Level 5.1(H) 3.5 - 5.0 g/dL [facility] Alkaline Phosphatase 90 39 - 117 U/L [facility] Blood Venous blood specimen / Unknown 05/11/2025 12:05 PM EST 05/11/2025 1:21 PM EST us Mushtaq Henderson MD LAB BLOOD ORDERABLES Final Result [facility] [address] [place] [phone] [phone] * (ABNORMAL) Hepatitis Panel, General (09/04/2022 10:41 AM EDT) Hepatitis A Antibody Total NON-REACT GATITO NON-REACT GATITO [facility] Comment: For additional information, please refer to http://Pagido.Tripda/faq/BXV609 (This link is being provided for informational/ educational purposes only.) Hepatitis B Surface Antibody QL REACTIVE( A) NON-REACT GATITO [facility] Hepatitis B Surface Ag NON-REACT GATITO NON-REACT GATITO [facility] Hepatitis B Core Antibody Total NON-REACT GATITO NON-REACT GATITO [facility] Hepatitis C Antibody NON-REACT GATITO NON-REACT GATITO [facility] Therapeuticst Index 0.07 <1.00 [facility] [place] [facility] Comment: HCV antibody was non-reactive. There is no laboratory evidence of HCV infection. In most cases, no further action is required. However, if recent HCV exposure is suspected, a test for HCV RNA (test code 45133) is suggested. For additional information please refer to http://Pagido.Tripda/faq/UJA40j5 (This link is being provided for informational/ educational purposes only.) 09/04/2022 10:4 1 AM EDT 09/04/2022 10:42 AM EDT Lebron Lozano MD LAB BLOOD ORDERABLES Final Result [facility] Arredondo [address], [place] [phone] [facility] [place] [facility] [address] [place] [phone] * HIV-1/2 Antigen and Antibodies, Fourth Generation, with Reflexes (08/22/2022 9:40 AM EST) HIV Antigen/Antibody, 4th Generation NON-REAC TIVE NON-REAC TIVE [facility] [place] [facility] Comment: HIV-1 antigen and HIV-1/HIV-2 antibodies were [...] purpose. For additional information please refer to http://education.Tripda/faq/DVK770 (This link is being provided for informational/ educational purposes only.) The performance of this assay has not been clinically validated in patients less than 2 years old. Blood Venous blood specimen / Unknown 08/22/2022 9:40 AM EST 08/22/2022 9:41 AM EST us Lebron Lozano MD LAB BLOOD ORDERABLES Final Result [facility] [address] [place] [address], [place] [phone] [facility] [place] [facility] [address] [place] [address], (Nl2) [place] [phone] * (ABNORMAL) Hm Pap Smear (09/15/2021) Pap Epithelial cell abnormality(A ) Negative for intraephithelial lesion or malignancy, Other HPV Detected us Historical Provider HEALTH MAINTENANCE Final Result from Last 3 Months or Most Recently Relevant to Health Maintenance Insurance Care Teams Tools Programmer Relationship Specialty Start Date End Date Lebron Lozano MD [address] [place] [phone] PCP - General Internal Medicine 03/22/25
--- OUTSIDE RECORDS SUMMARY | 2025-05-11 15:41 | XMS_ITS | Encounter Summary ---
Author Organization [employer] Address [address] [place] [address] 7 [place] [address] Care Team Providers Care Linux Consultant Name Role Phone Lebron Lozano MD Primary Care Provider Encounter Details Date Type Department Care Team (Late Contact Info) Description 03/18/2023 Abstract [facility] MED[facility] [address] [place] [address] Ellen Espitia MD [address] [place] [address] Social History Tobacco Use Types Packs/Day Years [...] Department Care Team (Late Contact Info) Description 05/28/2025 4:00 PM EST Office Visit [facility]S [address] [place], [place] [phone] Lebron Lozano MD [address] [place] [address] documented as of this encounter Procedures Procedure Name Priority Date/Time Associated Diagnosis Comments BIOPSY CERVIX Routine 10/25/2021 PAP/HPV Routine 09/15/2021 BIOPSY CERVIX Routine 09/02/2020 HM PAP/HPV Routine 08/03/2020 documented in this encounter Results * Biopsy cervix (10/25/2021) [facility] Provider IN CLINIC/BEDSIDE ORDERAB LES Final Result * (ABNORMAL) Pap Smear (09/15/2021) Pap Epithelial cell abnormality(A ) Negative for intraephithelial lesion or malignancy, Other HPV Detected [facility] Provider HEALTH MAINTENANCE Final Result * Biopsy cervix (09/02/2020) [facility] Provider IN CLINIC/BEDSIDE ORDERAB LES Final Result * (ABNORMAL) Pap Smear (08/03/2020) Pap Epithelial cell abnormality(A ) Negative for intraephithelial lesion or malignancy, Other HPV Detected [facility] Jennifer BURNETT HEALTH MAINTENANCE Final Result documented in this encounter Visit Diagnoses Not on filedocumented in this encounter Care Teams Linux Consultant Relationship Specialty Start Date End Date Lebron Lozano MD [address] [place] [phone] PCP - General Internal Medicine 03/22/25 documented as of this encounter
--- OUTSIDE RECORDS SUMMARY | 2025-05-11 15:41 | XMS_ITS | Encounter Summary ---
Author Organization [employer] Address [address] [facility] 7t [place] [address] Care Team Providers Care Cancer Program Coordinator Name Role Phone Lebron Lozano MD Primary Care Provider [phone] Encounter Details Date Type Department Care Team (Latest Contact Info) Description 05/11/2025 Travel Social History Tobacco Use Types Packs/Day [...] [place] documented as of this encounter Plan of Treatment Upcoming Encounters Date Type Department Care Team ([facility] st Contact Info) Description 05/28/2025 4:00 PM EST Office Visit [facility]S [address] [place] [address] Lebron Lozano MD [address] [place] [address] documented as of this encounter Visit Diagnoses Not on filedocumented in this encounter Additional Health Concerns Assessment Noted Time PHQ-9 Depression Total Score: 12 025 12:05 PM EDT documented as of this encounter Care Teams Cancer Program Coordinator Relationship Specialty Start Date End Date Lebron Lozano MD [address] [place] [address] PCP - General Internal Medicine 03/22/25 documented as of this encounter
--- OUTSIDE RECORDS SUMMARY | 2025-05-11 15:41 | XMS_ITS | Encounter Summary ---
Author Organization [employer] Address [address] [place] [address] [address] [place] [address] Care Team Providers Care Manager Power Name Role Phone Lebron Lozano MD Primary Care Provider [phone] Reason for Visit * Reason Onset Date Comments Error 07/05/2023 Encounter Details Date Type Department Care Team (Late Contact Info) Description 07/05/2023 Telephone [facility] [address] [place] [address] Ellen Espitia MD [address] [place] [address] Error Social History Tobacco Use Types Packs/Day [...] Description 05/28/2025 4:00 PM EST Office Visit [facility] [address] [place] [address] Lebron Lozano MD [address] [place], [place] [phone] documented as of this encounter Visit Diagnoses Not on filedocumented in this encounter Care Teams Manager Power Relationship Specialty Start Date End Date Lebron Lozano MD [address] [place] [phone] PCP - General Internal Medicine 03/22/25 documented as of this encounter
--- OUTSIDE RECORDS SUMMARY | 2025-05-11 15:41 | XMS_ITS | Encounter Summary ---
Author Organization [employer] Address [address] [place] [address] [place] [address] Care Team Providers Care Transition Lead Name Role Phone Lebron Lozano MD Primary Care Provider [phone] Reason for Visit * Reason Onset Date Comments Chart Prep 05/06/2025 Encounter Details Date Type Department Care Team (Late st Contact Info) Description 05/06/2025 Telephone [facility] MED[facility]INE [address] [place] [address] Gage Moon NP [address] [place] [address] Chart Prep Social History Tobacco Use Types Packs/Day Years [...] your housing situation today? I have jung sing 12/25/[address] you li [...] encounter Miscellaneous Notes * Telephone Encounter - Mindy Campos [place] - 05/06/2025 1:20 PM EST Chart Prep Labs: not done from 04/16/25 Images: not applicable Referrals: [facility] General Surgery - Scheduled for 05/14/25 at 2:30 pm Vaccines due: HPV Screenings: Lipid panel, Cervical cancer. Overdue care gaps: SBIRT, AJ-7, Oral health screening, Disability screen, and Tobacco documented in this encounter Plan of Treatment Upcoming Encounters Date Type Department Care Team (Late st Contact Info) Description 05/28/2025 4:00 PM EST Office Visit [facility] MED [facility] PEDS [address] [place] [address] Lebron Lozano MD [address] [place] [address] documented as of this encounter Visit Diagnoses Not on filedocumented in this encounter Additional Health Concerns Assessment Noted Time PHQ-9 Depression Total Score: 12 025 12:05 PM EDT documented as of this encounter Care Teams Transition Lead Relationship Specialty Start Date End Date Lebron Lozano MD [address] [place] [phone] PCP - General Internal Medicine 03/22/25 documented as of this encounter
--- OUTSIDE RECORDS SUMMARY | 2025-05-11 15:41 | XMS_ITS | Encounter Summary ---
Author Organization [employer] Address [address] [facility] 7 [place] [address] Care Team Providers Care Workshop Manager Name Role Phone Lebron Lozano MD Primary Care Provider [phone]- [phone] Reason for Visit * Reason Onset Date Comments Nurse Triage 05/05/2025 Encounter Details Date Type Department Care Team (Late st Contact Info) Description 05/05/2025 Telephone [facility] MEDICINE [address] [place] [address] Lebron Lozano MD 505 [place] [address] Nurse Triage Social History Tobacco Use Types [...] encounter Miscellaneous Notes * Telephone Encounter - Janel Chau RN - 05/07/2025 9:17 AM EST TC returned to pt. No availability in [facility] next week, pt. Agrees to r/s to 05/11/25 at 11am with * Telephone Encounter - Sandra San - 05/07/2025 8:36 AM EST Tc from pt requesting to reschedule sick on site from 05/07, due to having trouble with her transportation. Contact pt at [phone] * Telephone Encounter - Pinky Chambers RN - 05/05/2025 9:53 AM EST TC placed to pt for triage. Pt reports they have been experiencing calf tightness, muscle cramp in calf pt states are charley horses and pain in right and left legs x 1 month. Pt reports their calvesfeel tight almost as they are going to get a charley horse muscle spasm. Pt reports pain in right and left legs from the ankles to the backs of their knees. Pt reports stinging and burning pain in ankles that comes and goes. Pt reports the pain and discomfort feeling as though they are going to have a charley horse muscle spasm is constant. Pt reports pain is 6/10. Pt reports they were taking ibuprofen, but it does not help with pain so have since stopped. Pt denies fever, swelling to calves orlegs, discoloration of foot or leg, rash, wound, redness or hard lump along leg. No availability [facility]. Pt booked for appointment with [facility] on 05/07/25 at 10:45 AM. Pt agreeable to appointment and denies questions at this time. Advised of [facility] hours. Advised to call office with new or worsening symptoms. Pt agreeable to plan. Protocol Used: Leg Pain (Adult) Protocol-Based Disposition: See in Office or Video Visit within 3 Days Video visit offer not recorded Positive Triage Question: * Moderate pain (e.g., interferes with normal activities, limping) and present > 3 days * All higher-acuity triage questions were negative. Care Advice Discussed: * Reasons To Call Back - Moderate pain (such as limping) lasts more than 3 days - Mild pain lasts more than 7 days - Signs of infection occur (such as spreading redness, warmth, fever) - You become worse * Telephone Encounter - Maile Sibley - 05/05/2025 9:47 AM EST Symptom: Leg Pain - Not From Injury Outcome: Schedule an appointment to be seen within 24 hours Reason: Caller denied all higher acuity questions The caller accepted this outcome. PCP DR. Lozano documented in this encounter Plan of Treatment Upcoming Encounters Date Type Department Care Team ([facility] st Contact Info) Description 05/28/2025 4:00 PM EST Office Visit [facility] MED & PEDS [address] [place] [address] Lebron Lozano MD [address] [place] [address] documented as of this encounter Visit Diagnoses Not on filedocumented in this encounter Additional Health Concerns Assessment Noted Time PHQ-9 Depression Total Score: 12 025 12:05 PM EDT documented as of this encounter Care Teams Workshop Manager Relationship Specialty Start Date End Date Lebron Lozano MD [address] [place] [address] PCP - General Internal Medicine 03/22/25 documented as of this encounter
--- OUTSIDE RECORDS SUMMARY | 2025-05-11 15:41 | XMS_ITS | Encounter Summary ---
Author Organization [employer] Address [address] [facility] 7t [place] [address] Care Team Providers Care Internal Control Manager Name Role Phone Lebron Lozano MD Primary Care Provider [phone]- [phone] Reason for Visit * Reason Onset Date Comments Reschedule 07/22/2023 Encounter Details Date Type Department Care Team ([facility] st Contact Info) Description 07/22/2023 Telephone [facility] MEDICINE [address] [place] [address] Ellen Espitia MD [address] [place] [address] Reschedule Social History Tobacco Use Types Packs/Day [...] Description 05/28/2025 4:00 PM EST Office Visit [facility] MED & PEDS [address] [place] [address] Lebron Lozano MD 505 [place] [address] documented as of this encounter Visit Diagnoses Not on filedocumented in this encounter Care Teams Internal Control Manager Relationship Specialty Start Date End Date Lebron Lozano MD [address] [place] [address] PCP - General Internal Medicine 03/22/25 documented as of this encounter
--- OUTSIDE RECORDS SUMMARY | 2025-05-11 15:41 | XMS_ITS | Encounter Summary ---
Author Organization [employer] Address 75 [facility] 7 [place] [address] Care Team Providers Care Oil Producer Name Role Phone Lebron Lozano MD Primary Care Provider [phone]- [phone] Reason for Visit * Reason Onset Date Comments Apointment change 05/10/2025 Encounter Details Date Type Department Care Team ([facility] st Contact Info) Description 05/10/2025 Telephone [facility] MEDICINE [address] [place] [address] Lebron Lozano MD 505 [place] [address] Apointment change Social History Tobacco Use Types Packs/Day Years [...] encounter Miscellaneous Notes * Telephone Encounter - Evelyn Villagran - 05/10/2025 12:33 PM EST Called Patient advised appointment will be changed from 05/11/2025 at 11am to 05/10/2025 at 11:30amPatient agreed will come at 11:30am documented in this encounter Plan of Treatment Upcoming Encounters Date Type Department Care Team (Late st Contact Info) Description 05/28/2025 4:00 PM EST Office Visit [facility] MED & PEDS [address] [place] [address] Lebron Lozano MD [address] [place] [address] documented as of this encounter Visit Diagnoses Not on filedocumented in this encounter Additional Health Concerns Assessment Noted Time PHQ-9 Depression Total Score: 12 025 12:05 PM EDT documented as of this encounter Care Teams Oil Producer Relationship Specialty Start Date End Date Lebron Lozano MD 505 [place] [address] PCP - General Internal Medicine 03/22/25 documented as of this encounter
--- OUTSIDE RECORDS SUMMARY | 2025-05-11 15:41 | XMS_ITS | Clinical Summary ---
Author Organization [employer] [facility] ity Address [address] [place] [address] Care Team Providers Care Digester Hand Name Role Phone Unavailable Primary Care Provider [...] Cervical Cancer Screening: P ap Smear 2010 HPV Vaccines (1 - 3-dose SCD M series) 2016 HIV Screening 05/20/2022 Hepatitis C Screening 05/20/2022 Social Influencers of Health Screening 05/20/2022 Depression Screening 06/17/2024 COVID-19 Vaccine ( - 2024-2 6 season) 2025 Influenza Vaccine (#1) 2025 RSV Immunization Adult Patie nts (1 - 1-dose 75+ series) 2064 HIB Vaccines Aged Out No longer eligi [...]
--- OUTSIDE RECORDS SUMMARY | 2025-05-11 15:41 | XMS_ITS | Encounter Summary ---
Author Organization [employer] Address [address] [place] [address] 7 [place] [address] Care Team Providers Care Preflight Inspector Name Role Phone Lebron Lozano MD Primary Care Provider [phone]- [phone] Reason for Referral * Imaging (Routine) - Closed Specialty Diagnoses / Procedures Referred By Contcorinna allen Referred To Contact Diagnoses Elevated liver function tests Procedures US Abdomen Limited Lebron Lozano MD [address] [place] [address] Phone: tel: fax: [facility] [address] [place] [address] Phone: tel: fax: Referral ID Status Reason Start Date Expiration Date Visits Re quested Visits Authorized [id number] Closed 08/24/2022 02/20/2023 1 1 Encounter Details Date Type Department Care Team (Late st Contact Info) Description 08/24/2022 Orders Only [facility] MED & PEDS [address] [place] [address] Lebron Lozano MD [address] [place] [address] Elevated liver function tests (Primary Dx) Social [...] Upcoming Encounters Date Type Department Care Team ([facility] st Contact Info) Description 05/28/2025 4:00 PM EST Office Visit [facility] MED & PEDS [address] [place] [address] Lebron Lozano MD 505 [place] [address] Scheduled Orders Name Type Priority Associated Diagnoses [...] Hepatitis A Antibody Total NON-REACT GATITO NON-REACT GATITOPeter [employer] [place] [employer] Comment: For additional information, please refer to http://education.Tribogenics/faq/LVY404 (This link is being provided for informational/ educational purposes only.) Hepatitis B Surface Antibody QL REACTIVE( A) NON-REACT GATITOPeter [employer] [place] [employer] Hepatitis B Surface Ag NON-REACT GATITO NON-REACT GATITOPeter [employer] [place] [employer] Hepatitis B Core Antibody Total NON-REACT GATITO NON-REACT GATITOPeter [employer] [place] [employer] Hepatitis C Antibody NON-REACT GATIOT NON-REACT GATITOPeter [employer] [place] [employer] Diagnost Index 0.07 <1.00 [employer] [place] [employer] Diagnost Comment: HCV antibody was non-reactive. There is no laboratory evidence of HCV infection. In most cases, no further action is required. However, if recent HCV exposure is suspected, a test for HCV RNA (test code 95044) is suggested. For additional information please refer to http://education.Tribogenics/faq/NFG98g3 (This link is being provided for informational/ educational purposes only.) 09/04/2022 10:4 1 AM EDT 09/04/2022 10:42 AM EDT Lebron Lozano MD LAB BLOOD ORDERABLES Final Result [facility] [address], [place] [address] [employer] [place] [employer] [address] [place] [address] documented in this encounter Visit Diagnoses Diagnosis Elevated liver function tests- Primary Other abnormal blood chemistry documented in this encounter Care Teams Preflight Inspector Relationship Specialty Start Date End Date Lebron Lozano MD [address] [place] [address] PCP - General Internal Medicine 03/22/25 documented as of this encounter
== END 2025-05-11 11:55 | disposition home or self-care (01) ==
LOC: HO.HHCL 11:54
PROVIDERS: Referring Provider Internal Medicine; Visit Provider Internal Medicine
DX: N20.2 Calculus of kidney with calculus of ureter (principal); R25.2 Cramp and spasm; E55.9 Vitamin D deficiency, unspecified
CPT/HCPCS: 36415; 80053; 80061; 82306; 82550; 84443; 85025

== ENCOUNTER 2025-05-28 16:18 | Outpatient (REF) | payer MEDICAID, SELFPAY ==
--- OUTSIDE RECORDS SUMMARY | 2025-05-28 16:00 | XMS_ITS | Encounter Summary ---
Author Organization [employer] Address 75 [facility] 7 [place] [address] Care Team Providers Care Pipe Joints Supervisor Name Role Phone Lebron Lozano MD Primary Care Provider [phone]- [phone] Encounter Details Date Type Department Care Team ([facility] st Contact Info) Description 05/28/2025 4:00 PM EST Office Visit [facility] CHC MED & PEDS [address] [place], [place] [phone] Lebron Lozano MD 505 [place] [address] Bilateral leg cramps (Primary Dx); Candidal intertrigo; Class 2 obesity without serious comorbidity with body mass index (BMI) of 36.0 to 36.9 in adult, unspecified obesity type; Folliculitis; Dandruff Social History Tobacco Use Types Packs/Day Years [...] Sign Reading Time Taken Comments Blood Pressure 136/82 05/28/2025 3:57 PM EST Pulse 70 05/28/2025 3:57 PM EST Temperature 36.9 C (98.5 F) 05/28/2025 3:57 PM EST Respiratory Rate 21 05/28/2025 3:57 PM EST Oxygen Saturation 97% 05/28/2025 3:57 PM EST Inhaled Oxygen Concentration - - Weight 93.4 kg (206 lb) 05/28/2025 3:57 PM EST Height 160 cm (5' 3 ) 05/28/2025 3:57 PM EST Body Mass Index 36.49 05/28/2025 3:57 PM EST documented in this encounter Plan of Treatment Upcoming Encounters Date Type Department Care Team (Late st Contact Info) Description 07/01/2025 4:00 PM EST Office Visit [facility] MED & PEDS [address] [place] [address] Lebron Lozano MD [address] [place] [address] documented as of this encounter Visit Diagnoses Diagnosis Bilateral leg cramps- Primary Candidal intertrigo Candidiasis of skin and nails Class 2 obesity without serious comorbidity with body mass index (BMI) of 36.0 to 36.9 in adult, unspecified obesity type Folliculitis Other specified disease of hair and hair follicles Dandruff Other seborrheic dermatitis documented in this encounter Additional Health Concerns Assessment Noted Time PHQ-9 Depression Total Score: 12 025 12:05 PM EDT documented as of this encounter Care Teams Pipe Joints Supervisor Relationship Specialty Start Date End Date Lebron Lozano MD [address] [place] [address] PCP - General Internal Medicine 03/22/25 documented as of this encounter
--- OUTSIDE RECORDS SUMMARY | 2025-05-28 20:42 | XMS_ITS | Encounter Summary ---
Author Organization [employer] Address [address] [facility] 7 [place] [address] Care Team Providers Care Geography Instructor Name Role Phone Lerbon Lozano MD Primary Care Provider [phone]- [phone] Encounter Details Date Type Department Care Team (Latest Contact Info) Description 05/11/2025 Results Follow-Up [facility] CHC MED & PEDS 505 [place], [place] [phone] Lebron Lozano MD 505 [place] [address] Vitamin D, 25-Hydroxy, Total, Immunoassay, CBC auto differential, Comprehensive Metabolic Panel, Additional followed-up results: 2 Social History Tobacco Use Types Packs/Day Years [...] as of this encounter Miscellaneous Notes * Result Encounter Note - Lebron Lozano MD - 05/11/2025 4:35 PM EST FYI. If Ms Myra Manzanares calls for results, she will discuss her plan and her results at the next visit on 05/28 documented in this encounter Plan of Treatment Upcoming Encounters Date Type Department Care Team (Late st Contact Info) Description 07/01/2025 4:00 PM EST Office Visit [facility] MED & PEDS [address] [place] [address] Lebron Lozano MD [address] [place] [address] documented as of this encounter Visit Diagnoses Not on filedocumented in this encounter Additional Health Concerns Assessment Noted Time PHQ-9 Depression Total Score: 12 025 12:05 PM EDT documented as of this encounter Care Teams Geography Instructor Relationship Specialty Start Date End Date Lebron Lozano MD [address] [place] [address] PCP - General Internal Medicine 03/22/25 documented as of this encounter
--- OUTSIDE RECORDS SUMMARY | 2025-05-28 20:42 | XMS_ITS | Encounter Summary ---
Author Organization [employer] [facility] Address [address] [place] [address] 7 [place] [address] Care Team Providers Care Batch Mixer Name Role Phone Lebron Lozano MD Primary Care Provider Reason for Visit * Reason Onset Date Comments Error 07/05/2023 Encounter Details Date Type Department Care Team (Late Contact Info) Description 07/05/2023 Telephone [facility] MED & PEDS [address] [place] [address] Ellen Espitia MD [address] [place] [address] Error Social History Tobacco Use Types Packs/Day [...] Department Care Team (Late Contact Info) Description 07/01/2025 4:00 PM EST Office Visit [facility] MED & PEDS [address] [place] [address] Lebron Lozano MD [address] [place], [place] [phone] documented as of this encounter Visit Diagnoses Not on filedocumented in this encounter Care Teams Batch Mixer Relationship Specialty Start Date End Date Lebron Lozano MD [address] [place] [address] PCP - General Internal Medicine 03/22/25 documented as of this encounter
--- OUTSIDE RECORDS SUMMARY | 2025-05-28 20:42 | XMS_ITS | Encounter Summary ---
Author Organization [employer] [facility] Address [address] [place] [address] 7t [place] [address] Care Team Providers Care Nuisance Animal Damage Control Agent Name Role Phone Lebron Lozano MD Primary Care Provider [phone] Reason for Referral * Imaging (Routine) - Authorized Specialty Diagnoses / Procedures Referred By Contac t Referred To Contact Radiology Diagnoses Transaminitis Procedures US Abdomen Complete Mushtaq Barnett MD [address] [place] [address] Phone: tel: fax: [facility] [address] [place] [address] Phone: tel: fax: Referral ID Status Reason Start Date Expiration Date V isits Requested Visits Authorized [id number] Authorized 05/11/2025 05/11/2026 1 1 Reason for Visit * Reason Onset Date Comments Results 05/11/2025 Encounter Details Date Type Department Care Team (Latest Contact Info) Description 05/11/2025 Results Follow-Up [facility] MEDICINE [address] [place] [address] Mushtaq Barnett MD [address] [place] [address] TSH with Reflex to Free T4, Comprehensive [...] co ntrol worrying 1 05/11/2025 11:54 AM EST Jacqueline Dawson [place] Worrying too much about diff erent [...] MD - 05/11/2025 4:35 PM EST FYI. Pt will get further details on the plan of care at her next office visit on 05/28 * Telephone Encounter - Roberta Sosa RN [...] Description 07/01/2025 4:00 PM EST Office Visit [facility] CHC MED & PEDS [address] [place] [address] Lebron Lozano MD [address] [place] [address] Scheduled Orders Name Type Priority Associated Diagnoses [...] documented as of this encounter Care Teams Nuisance Animal Damage Control Agent Relationship Specialty Start Date End Date Lebron Lozano MD [address] [place] [address] PCP - General Internal Medicine 03/22/25 documented as of this encounter
--- OUTSIDE RECORDS SUMMARY | 2025-05-28 20:42 | XMS_ITS | Encounter Summary ---
Author Organization [employer] Address [address] [place] [address] 7 [place] [address] Care Team Providers Care Corrugated Box Machine Operator Name Role Phone Lebron Lozano MD Primary Care Provider [phone]- [phone] Reason for Referral * Imaging (Routine) - Closed Specialty Diagnoses / Procedures Referred By Contcorinna allen Referred To Contact Diagnoses Elevated liver function tests Procedures US Abdomen Limited Lebron Lozano MD [address] [place] [address] Phone: tel: fax: [facility] [address] [place] [address] Phone: tel: fax: Referral ID Status Reason Start Date Expiration Date Visits Re quested Visits Authorized [id number] Closed 08/24/2022 02/20/2023 1 1 Encounter Details Date Type Department Care Team (Late st Contact Info) Description 08/24/2022 Orders Only [facility] CHC MED & PEDS [address] [place] [address] Lebron Lozano MD [address] [place] [address] Elevated liver function tests (Primary Dx) Social [...] Upcoming Encounters Date Type Department Care Team ([facility] st Contact Info) Description 07/01/2025 4:00 PM EST Office Visit [facility] CHC MED & PEDS [address] [place] [address] Lebron Lozano MD [address] [place] [address] Scheduled Orders Name Type Priority Associated Diagnoses [...] Hepatitis A Antibody Total NON-REACT GATITO NON-REACT GATITOHumanco [place] [employer] Comment: For additional information, please refer to http://education.Sting Communications/faq/LKR954 (This link is being provided for informational/ educational purposes only.) Hepatitis B Surface Antibody QL REACTIVE( A) NON-REACT GATITOHumanco [place] [employer] Hepatitis B Surface Ag NON-REACT GATITO NON-REACT GATITOHumanco [place] [employer] Hepatitis B Core Antibody Total NON-REACT GATITO NON-REACT GATITOHumanco [place] [employer] Hepatitis C Antibody NON-REACT GATITO NON-REACT GATITOHumanco [place] [employer] Diagnost Index 0.07 <1.00 [facility] [employer] [facility] [place] [employer] Diagnost Comment: HCV antibody was non-reactive. There is no laboratory evidence of HCV infection. In most cases, no further action is required. However, if recent HCV exposure is suspected, a test for HCV RNA (test code 09358) is suggested. For additional information please refer to http://education.Sting Communications/faq/BKL21i7 (This link is being provided for informational/ educational purposes only.) 09/04/2022 10:4 1 AM EDT 09/04/2022 10:42 AM EDT Lebron Lozano MD LAB BLOOD ORDERABLES Final Result [facility] [address], [place] [address] [employer] [place] [employer] [address] [place] [address] documented in this encounter Visit Diagnoses Diagnosis Elevated liver function tests- Primary Other abnormal blood chemistry documented in this encounter Care Teams Corrugated Box Machine Operator Relationship Specialty Start Date End Date Lebron Lozano MD [address] [place] [address] PCP - General Internal Medicine 03/22/25 documented as of this encounter
--- OUTSIDE RECORDS SUMMARY | 2025-05-28 20:42 | XMS_ITS | Encounter Summary ---
Author Organization [employer] Address [address] [place] [address] 7 [place] [address] Care Team Providers Care Structural Steel Worker Helper Name Role Phone Lebron Lozano MD Primary Care Provider Encounter Details Date Type Department Care Team (Late Contact Info) Description 03/18/2023 Abstract [facility] MEDICINE [address] [place], [place] [phone] Ellen Espitia MD [address] [place] [address] Social History Tobacco Use Types Packs/Day Years [...] Description 07/01/2025 4:00 PM EST Office Visit [facility] CHC MED & PEDS [address] [place], [place] [phone] Lebron Lozano MD [address] [place] [address] documented as of this encounter Procedures Procedure Name Priority Date/Time Associated Diagnosis Comments BIOPSY CERVIX Routine 10/25/2021 PAP/HPV Routine 09/15/2021 BIOPSY CERVIX Routine 09/02/2020 HM PAP/HPV Routine 08/03/2020 documented in this encounter Results * Biopsy cervix (10/25/2021) [facility] Provider IN CLINIC/BEDSIDE ORDERAB LES Final Result * (ABNORMAL) Pap Smear (09/15/2021) Pap Epithelial cell abnormality(A ) Negative for intraephithelial lesion or malignancy, Other HPV Detected [facility] Provider HEALTH MAINTENANCE Final Result * Biopsy cervix (09/02/2020) [facility] Provider IN CLINIC/BEDSIDE ORDERAB LES Final Result * (ABNORMAL) Pap Smear (08/03/2020) Pap Epithelial cell abnormality(A ) Negative for intraephithelial lesion or malignancy, Other HPV Detected [facility] Jennifer BURNETT HEALTH MAINTENANCE Final Result documented in this encounter Visit Diagnoses Not on filedocumented in this encounter Care Teams Structural Steel Worker Helper Relationship Specialty Start Date End Date Lebron Lozano MD [address] [place] [address] PCP - General Internal Medicine 03/22/25 documented as of this encounter
--- OUTSIDE RECORDS SUMMARY | 2025-05-28 20:42 | XMS_ITS | Clinical Summary ---
Author Organization [employer] ity Address [address] [place] [address] Care Team Providers Care Sort Manager Name Role Phone Unavailable Primary Care Provider [...]
--- OUTSIDE RECORDS SUMMARY | 2025-05-28 20:42 | XMS_ITS | Clinical Summary ---
Author Organization [employer] Address [address] [facility] [address] [place] [address] Care Team Providers Care Analysis Reporting Developer Name Role Phone Lebron Lozano MD Primary Care Provider Allergies No known active allergies Medications * This document contains information received from the source organization and may not represent a complete record from that organization. Elastic Bandages & Supports (Wrist Splint) [facility] Wear splints on both wrists at night as needed for hand pain 2 Active loratadine (Claritin) 10 MG tabletIndicatio ns:Cough [...] 5 Active ergocalciferol (Vitamin D2) 1.25 MG (50611 UT) capsule Take 1 capsule (1.25 mg) by mouth 1 (one) time per week. 15 capsule 5 Active Diclofenac Sodium (Voltaren) 1 % gel Use topical BID 100 g 3 5 Active celecoxib (CeleBREX) 50 MG capsule Take 1 capsule (50 mg) by mouth 2 times daily. 60 capsule 11 5 03/18/20 26 Active Tirzepatide-Chaka ght Management (Zepbound) 5 MG/0.5ML solution auto-injectorIn dications:Class 2 obesity without serious comorbidity with body mass index (BMI) of 36.0 to 36.9 in adult, unspecified obesity type Inject 0.5 mL (5 mg) under the skin 1 (one) time per week. 2 mL 1 5 Active nystatin (Nystop) 518939 UNIT/GM powderIndicatio ns:Candidal intertrigo Apply topically 2 times daily. 60 g 1 5 05/28/20 26 Active doxycycline (Vibramycin) 100 MG capsuleIndicati ons:Folliculiti s Take 1 capsule (100 mg) by mouth 2 times daily for 10 days. Take with at least 8 ounces (large glass) of water, do not lie down for 30 minutes after 20 capsule 5 06/07/20 25 Active ketoconazole (NIZOral) 2 % shampooIndicati ons:Dandruff Apply topically 2 (two) times a week. 120 mL 2 5 Active doxycycline (Adoxa) 100 MG tablet Take 100 mg by mouth 2 times daily. Take with a full glass of water and do not lie down for at least 30 minutes after Active clotrimazole (Clotrimazole Anti-Fungal) 1 % creamIndication s:Intertrigo Apply topically 2 times daily. 60 g 3 05/28/20 25 Discontinu ed(Therapy completed) Tirzepatide-Chaka ght Management (Zepbound) 2.5 MG/0.5ML solution auto-injectorIn dications:Class 2 obesity without serious comorbidity with body mass index (BMI) of 36.0 to 36.9 in adult, unspecified obesity type Inject 0.5 mL (2.5 mg) under the skin 1 (one) time per week. 2 mL 1 5 12/12/20 25 Discontinu ed(Therapy completed) Active Problems Problem [...] Encounters Date Type Department Care Team Description 05/28/2025 4:00 PM EST Office Visit [facility] [address] [place] [address] Lebron Lozano MD Bilateral leg cramps (Primary Dx); Candidal intertrigo; Class 2 obesity without serious comorbidity with body mass index (BMI) of 36.0 to 36.9 in adult, unspecified obesity type; Folliculitis; Dandruff 05/28/2025 Travel 05/11/2025 11:30 AM EST Office Visit [address] [address] Mushtaq Barnett MD Bilateral leg cramps (Primary Dx) 05/11/2025 Results Follow-Up [facility] [address] [place] [address] Lebron Lozano MD Vitamin D, 25-Hydroxy, Total, Immunoassay, CBC auto differential, Comprehensive Metabolic Panel, Additional followed-up results: 2 05/11/2025 Results Follow-Up [address] [address] Mushtaq Barnett MD TSH with Reflex to Free T4, Comprehensive Metabolic Panel, Creatine Kinase, Total, CBC auto differential 05/11/2025 Travel 05/10/[address] [address] Lebron Lozano MD Apointment change 05/06/[address] [address] Gage Moon NP Chart Prep 05/05/[address] [address] Lebron Lozano MD Nurse Triage 04/20/[address] [address] Lebron Lozano MD Prior Authorization 04/16/2025 2:45 PM EDT Office Visit [facility] [address] [place] [address] Lebron Lozano MD Vitamin D deficiency (Primary Dx); Kidney stones; Ureteropelvic junction calculus; Class 2 obesity without serious comorbidity with body mass index (BMI) of 36.0 to 36.9 in adult, unspecified obesity type; Bilateral carpal tunnel syndrome 04/16/2025 Travel 04/15/2025 Telephone [facility] [address] [place] [address] Lebron Lozano MD Chart Prep 04/09/2025 Patient Outreach [facility] [address] [place] [address] Lebron Lozano MD Pre-visit Planning (SDOH screening completed on 12/25/24 ) 03/22/2025 3:40 PM EDT Office Visit [facility] [address] [place] [address] Christelle Alas MD Abscess (Primary Dx); Right calf pain; Bilateral foot pain 03/22/2025 Travel 03/22/2025 Telephone [facility] [address] [place] [address] Lebron Lozano MD Medication Question 03/22/2025 Telephone [facility] [address] [place] [address] Ellen Espitia MD Nurse Triage 03/18/2025 9:30 AM EDT Office Visit [facility] [address] [place] [address] Ellen Espitia MD Chronic bilateral low back pain without sciatica (Primary Dx); Vitamin D deficiency; Bleeding hemorrhoids 03/18/2025 Travel 03/12/2025 Telephone [facility] [address] [place] [phone] Ellen Espitia MD Appointment 03/02/2025 Telephone [facility] [address] [place] [address] Ellen Espitia MD Chart Prep from Last 3 Months Immunizations Immunization Administration Dates Next Due Hep B, Adolescent or Pediatric 12/25/2004,2002,12/25/2002 Hib ([facility]) 05/18/1991,01/02/1991 IPV 1993, 1,05/12/1990,1989 Influenza, IIV3, injectable [...] is your housing situation today? I have jungramin zamorano 12/25/[address] you [...] Mass Index 36.49 05/28/2025 3:57 PM EST Plan of Treatment Upcoming Encounters Date Type Department Care Team (Late st Contact Info) Description 07/01/2025 4:00 PM EST Office Visit [facility] [address] [place] [address] Lebron Lozano MD [address] [place] [address] Health Maintenance Due Date Last Done Comments Family Planning (PISQ) 2004 HPV Vaccines (1 - 3-dose series) 2004 Cervical Cancer Screening 10/25/2022 HPV/Cotest 10/25/2022 09/15/2021, 04/0 06/2021, 09/15/2021, Additional history exists Pap Smear 10/25/2022 09/15/2021, 08/03/2020 Depression Monitoring 06/27/2025 12/25/2024, 025 Influenza Vaccine (#1) 2025 03/01/2009 Postp oned from 02/15/2025 (Patient Refused) SDOH Screening 12/25/2025 12/25/2024 COVID-19 Vaccine ( season) 2026 05/19/2021, 04/27/2021 Postponed from 02/15/2025 [...] Vitamin D 25-OH Total 19.3(L) >30 ng/mL [facility] Comment: Health Based Reference Values*< 20 ng/mL [id number] ng/mL Insufficient> 30 ng/mL Sufficient*Leesa GILES. N [...] BLOOD ORDERABLES Final Result Performing Organization Address [facility] Co de Phone Number [facility] [address] [place] [address] [phone] * TSH with Reflex to Free T4 (05/11/2025 12:05 PM EST) Only the most recent of2 resultswithin the time period is included. TSH reflex Free T4 1.84 0.32 - 4.0 uIU/mL [facility] Blood Venous blood specimen / Unknown 05/11/2025 12:05 PM EST 05/11/2025 1:21 PM EST us Mushtaq Henderson MD LAB BLOOD ORDERABLES Final Result Performing Organization Address [facility] Co de Phone Number [facility] [address] [place] [phone] * (ABNORMAL) CBC auto differential (05/11/2025 12:05 PM EST) Only the most recent of2 resultswithin the time period is included. White Blood Count 12.3(H) 4.8 - 10.8 X10*3/uL [facility] Red Blood Count 5.34 4.20 - 5.50 X10*6/uL [facility] Hemoglobin 16.2(H) 12.0 - 16.0 g/dl [facility] Hematocrit 47.0 37.0 - 47.0 % [facility] Mean Corpuscular Volume 88.0 80.0 - 98.0 fL [facility] Mean Corpuscular Hemoglobin 30.3 27.0 - 33.0 pg [facility] Mean Corpuscular HGB Conc 34.5 31.0 - 35.0 g/dl [facility] Red Cell Distribution Width 13.0 11.0 - 16.0 % [facility] Platelet Count 368 160 - 400 X10*3/uL [facility] Mean Platelet Volume 11.0 9.4 - 12.3 fL [facility] Neutrophils Percent Auto 64.2 45 - 73 % [facility] Imm Gran Pct Auto 0.4 0.0 - 0.4 % [facility] Lymphocytes Percent Auto 23.5 20 - 40 % [facility] Monocytes Percent Auto 9.8 2 - 11 % [facility] Eosinophils Percent Auto 1.5 0 - 4 % [facility] Basophils Percent Auto 0.6 0 - 2 % [facility] NRBC Pct Auto 0.0 0.0 - 0.2 /100WBC [facility] Neutrophils Absolute Auto 7.9 2.0 - 8.3 x10*3/uL [facility] Imm Gran Abs Auto 0.05(H) 0.00 - 0.03 X10*3/uL [facility] Lymphocytes Absolute Auto 2.9 1.2 - 4.9 X10*3/uL [facility] Monocytes Absolute Auto 1.2 0.1 - 1.2 X10*3/uL [facility] Eosinophils Absolute Auto 0.2 0.0 - 0.4 X10*3/uL [facility] Basophils Absolute Auto 0.1 0.0 - 0.2 X10*3/uL [facility] NRBC Abs Auto 0.000 0.0 - 0.012 X10*3/uL [facility] Blood Venous blood specimen / Unknown 05/11/2025 12:05 PM EST 05/11/2025 1:18 PM EST Mushtaq Henderson MD LAB BLOOD ORDERABLES Final Result Performing Organization Address City/[facility]/ZIP Co de Phone Number [facility] [address] [place] [address] [phone] * Creatine Kinase, Total (05/11/2025 12:05 PM EST) Creatine Kinase Total 78 26 - 140 U/L [facility] Blood Venous blood specimen / Unknown 05/11/2025 12:05 PM EST 05/11/2025 1:21 PM EST Mushtaq Henderson MD LAB BLOOD ORDERABLES Final Result Performing Organization Address [facility] Co de Phone Number [facility] [address] [place] [phone] * (ABNORMAL) Lipid Panel, Standard (05/11/2025 12:05 PM EST) Triglycerides 179(H) <150 mg/dL [facility] Comment:Desirable Triglyceri de: less than 150 mg/dLBorderline High Triglyceride 150-199 mg/dLHigh Triglyceride: 200-499 mg/dLVery High Triglyceride: greater than or equal to 5OO mg/dL Cholesterol 245(H) <200 mg/dL [facility] Comment:Desirable Cholestero l: less than 200 mg/dLBorderline High Cholesterol: 200-239 mg/dLHigh Cholesterol: greater than 239 mg/dL LDL Cholesterol Calculated 167(H) <100 mg/dL [facility] Comment:Desirable LDL: less than 100 mg/dLNear Optimal/Above Optimal LDL: 110- 129 mg/dLBorderline High LDL: 130-159 mg/dLHigh LDL: 160-189 mg/dLVery High LDL: greater than or equal to 190 mg/dL HDL Cholesterol 43 >40 mg/dL [facility] Comment:Desirable HDL: great er than 40 mg/dL Note: This HDL assay may give artificially low results in patients with liver disease. Blood Venous blood specimen / Unknown 05/11/2025 12:05 PM EST 05/11/2025 1:21 PM EST us Lebron Loznao MD LAB BLOOD ORDERABLES Final Result [facility] [address] [place] [phone] * (ABNORMAL) Comprehensive Metabolic Panel (05/11/2025 12:05 PM EST) Only the most recent of2 resultswithin the time period is included. Sodium 141 135 - 145 mmol/L [facility] Potassium 4.3 3.3 - 5.1 mmol/L [facility] Chloride 104 96 - 108 mmol/L [facility] Carbon Dioxide 29 22 - 29 mmol/L [facility] Anion Gap 12 12 - 20 [facility] Urea Nitrogen (BUN) 9 9 - 16 mg/dL [facility] Creatinine, Serum 0.61 0.5 - 1.4 mg/dL [facility] Estimated Glomerular Filt Rate >60 [facility] Comment:Chronic Kidney Disea se: Estimated GFR < 60 mL/min/1.64l5Xpnoem Kidney Disease: Estimated GFR < 15 mL/min/1.73m2 Glucose 89 60 - 115 mg/dL [facility] Calcium 10.1 8.4 - 10.2 mg/dL [facility] Bilirubin, Total 0.5 0.0 - 1.0 mg/dL [facility] Aspartate Amino Transferase 46(H) 5 - 31 U/L [facility] Alanine Aminotransferase 84(H) 0 - 31 U/L [facility] Total Protein 8.0 6.5 - 8.0 g/dL [facility] Albumin Level 5.1(H) 3.5 - 5.0 g/dL [facility] Alkaline Phosphatase 90 39 - 117 U/L [facility] Blood Venous blood specimen / Unknown 05/11/2025 12:05 PM EST 05/11/2025 1:21 PM EST us Mushtaq Henderson MD LAB BLOOD ORDERABLES Final Result [facility] [address] [place] [phone] * (ABNORMAL) Hepatitis Panel, General (09/04/2022 10:41 AM EDT) Hepatitis A Antibody Total NON-REACT GATITO NON-REACT GATITO [employer] Comment: For additional information, please refer to http://[employer]/faq/MYT181 (This link is being provided for informational/ educational purposes only.) Hepatitis B Surface Antibody QL REACTIVE( A) NON-REACT GATITO [employer] [place] [employer] Hepatitis B Surface Ag NON-REACT GATITO NON-REACT GATITO [employer] [place] [employer] Hepatitis B Core Antibody Total NON-REACT GATITO NON-REACT GATITO [employer] [place] [employer] Hepatitis C Antibody NON-REACT GATITO NON-REACT GATITO [employer] [place] [employer] Index 0.07 <1.00 [employer] [place] [employer] Comment: HCV antibody was non-reactive. There is no laboratory evidence of HCV infection. In most cases, no further action is required. However, if recent HCV exposure is suspected, a test for HCV RNA (test code 08198) is suggested. For additional information please refer to http://[employer]/faq/MVI36i1 (This link is being provided for informational/ educational purposes only.) 09/04/2022 10:4 1 AM EDT 09/04/2022 10:42 AM EDT us Lebron Lozano MD LAB BLOOD ORDERABLES Final Result [facility] [address], [place] [address] [employer] [place] [employer] [address] [place] [address] * HIV-1/2 Antigen and Antibodies, Fourth Generation, with Reflexes (08/22/2022 9:40 AM EST) HIV Antigen/Antibody, 4th Generation NON-REAC TIVE NON-REAC TIVE [employer] [place] [employer] Comment: HIV-1 antigen and HIV-1/HIV-2 antibodies were [...] purpose. For additional information please refer to http://education.[employer]/faq/MVW114 (This link is being provided for informational/ educational purposes only.) The performance of this assay has not been clinically validated in patients less than 2 years old. Blood Venous blood specimen / Unknown 08/22/2022 9:40 AM EST 08/22/2022 9:41 AM EST Lebron Lozano MD LAB BLOOD ORDERABLES Final Result [facility] [address], [place] [address] [employer] [place] [employer] [address] [facility], ([address]) [place] [address] * (ABNORMAL) Pap Smear (09/15/2021) Pap Epithelial cell abnormality(A ) Negative for intraephithelial lesion or malignancy, Other HPV Detected Historical Provider HEALTH MAINTENANCE Final Result from Last 3 Months or Most Recently Relevant to Health Maintenance Insurance Care Teams Analysis Reporting Developer Relationship Specialty Start Date End Date Lebron Lozano MD [address] [place] [id number] PCP - General Internal Medicine 03/22/25
--- OUTSIDE RECORDS SUMMARY | 2025-05-28 20:42 | XMS_ITS | Encounter Summary ---
Author Organization [employer] Address [address] [facility] [address] [place] [address] Care Team Providers Care Furnace And Wash Equipment Operator Name Role Phone Lebron Lozano MD Primary Care Provider [phone] Reason for Visit * Reason Onset Date Comments Reschedule 07/22/2023 Encounter Details Date Type Department Care Team ([facility] st Contact Info) Description 07/22/[address] [facility] [address] [place] [address] Ellen Espitia MD [address] [place] [address] Reschedule Social History Tobacco Use Types Packs/Day [...] Description 07/01/2025 4:00 PM EST Office Visit [facility] [address] [place] [address] Lebron Lozano MD [address] [place] [address] documented as of this encounter Visit Diagnoses Not on filedocumented in this encounter Care Teams Furnace And Wash Equipment Operator Relationship Specialty Start Date End Date Lebron Lozano MD [address] [place] [address] PCP - General Internal Medicine 03/22/25 documented as of this encounter
--- OUTSIDE RECORDS SUMMARY | 2025-05-28 20:42 | XMS_ITS | Encounter Summary ---
Author Organization [employer] Address [address] [facility] [facility] [address] [place] [address] Care Team Providers Care Quality Control Lab Tech Name Role Phone Lebron Lozano MD Primary Care Provider [phone] Encounter Details Date Type Department Care Team (Latest Contact Info) Description 05/28/2025 Travel Social History Tobacco Use Types Packs/Day [...] Description 07/01/2025 4:00 PM EST Office Visit [facility] [address] [place] [address] Lebron Lozano MD [address] [place] [address] documented as of this encounter Visit Diagnoses Not on filedocumented in this encounter Additional Health Concerns Assessment Noted Time PHQ-9 Depression Total Score: 12 025 12:05 PM EDT documented as of this encounter Care Teams Quality Control Lab Tech Relationship Specialty Start Date End Date Lebron Lozano MD [address] [place] [address] PCP - General Internal Medicine 03/22/25 documented as of this encounter
[2025-05-29 07:37] LABS: HBS Num1 536.04 mIU/mL (0-7.99); HBc Num1 0.12 S/CO (0.00-0.79); HBsAGNum1 0.37 S/CO (0.00-0.99); Hepatitis B Surface Antigen Negative (Negative); ~HepC Num1 0.14 S/CO (0.00-0.79); ~Hepatitis B Surface Antibody REACTIVE (Nonreactive); ~Hepatitis C Antibody Nonreactive (Nonreactive)
== END 2025-05-28 16:19 | disposition home or self-care (01) ==
LOC: HO.CHCLDS 16:18
PROVIDERS: Visit Provider Internal Medicine
DX: Z11.59 Encounter for screening for other viral diseases (principal); R74.01 Elevation of levels of liver transaminase levels
CPT/HCPCS: 36415; 86704; 86706; 86803; 87340